=== PATIENT | male | born 1945 | race Caucasian/White ===

== ENCOUNTER 2017-07-30 10:34 | Observation (INO) | payer OTHER, MEDICARE ==
[~2017-07-30] VITALS: Ht 172.7 cm; Wt 67.0 kg
[2017-07-30] VITALS (13 sets, daily range): BP systolic 147–198; BP diastolic 75–100; PULSE 69–74; RESP 16–18; TEMP 97.8–98.2; O2SAT 93–99
[2017-07-30] MEDS ORDERED: PLAV75TA29 PO (10:59)
[2017-07-30] MEDS ORDERED: LISI10TA3 PO (10:59)
--- NOTE | 2017-07-30 10:59 | PD ---
HPI Chief Complaint: Chest Pain Time Seen by Provider: 10:52 Travel History International Travel<30 days: No (`) Contact w/Intl Traveler<30days: No Traveled to known affect area: No History of Present Illness HPI 72-year-old male with history of CAD, previous PR with pacemaker placement on Plavix, remote CVA 2 with left-sided deficit, PE, alcoholism, presents emergency department for evaluation of acute onset left-sided chest pain that began last evening. Patient reports that initially his left arm cramped and appeared discolored that he developed this chest pain. He states at times it radiates to his epigastrium and sometimes into his back. It is intermittent, moderate in severity. He has associated lightheaded sensation, nausea, and shortness of breath with it. He denies any recent illnesses, fever, or chills. He tells me that he has had a nuclear stress test within the last year and was told that it was normal. He was given aspirin and sublingual nitro spray in route to help to alleviate his pain. He currently rates his pain a 6 out of 10. He has no other symptoms to report at this time. [facility] Past Medical History Hx Anticoagulant Therapy: Yes (plavix) Cardiovascular Problems: Yes Social History Alcohol Use: Yes Tobacco Use: Yes Allergies-Medications (Allergen,Severity, Reaction): Coded Allergies: fish derived (Verified Allergy, Unknown, HIVES, 07/30/17) iodine (Verified Allergy, Unknown, HIVES, 07/30/17) Reported Meds & Prescriptions Reported Meds & Active Scripts Active Reported Prazosin (Prazosin HCl) 1 Mg Cap 1 Mg PO HS Plavix (Clopidogrel Bisulfate) 75 Mg Tab 75 Mg PO DAILY Lisinopril 10 Mg Tab 10 Mg PO DAILY Review of Systems Except as stated in HPI: all other systems reviewed are Neg Physical Exam Narrative GENERAL: Thin male patient, lying in bed, in no acute distress. SKIN: Focused skin assessment warm/dry. Psoriatic appearance with redness and crusting to the face HEAD: Atraumatic. Normocephalic. EYES: Pupils equal and round. No scleral icterus. No injection or drainage. ENT: No nasal bleeding or discharge. Mucous membranes pink and moist. NECK: Trachea midline. No JVD. CARDIOVASCULAR: Regular rate and rhythm. RESPIRATORY: No accessory muscle use. Clear to auscultation. Breath sounds equal bilaterally. GASTROINTESTINAL: Abdomen soft, nondistended. Left lower quadrant tenderness to palpation.. Hepatic and splenic margins not palpable. MUSCULOSKELETAL: No obvious deformities. No clubbing. No cyanosis. No edema. Mild left-sided weakness left upper extremity. NEUROLOGICAL: Awake and alert. No obvious cranial nerve deficits. Motor grossly within normal limits. Normal speech. PSYCHIATRIC: Appropriate mood and affect; insight and judgment normal. Data Data Last Documented VS Vital Signs Date Time Temp Pulse Resp B/P (MAP) Pulse Ox O2 Delivery O2 Flow Rate FiO2 07/30/17 16:30 97.8 69 18 158/87 (110) 98 Room Air 2.00 Orders Orders Electrocardiogram (07/30/17 10:58) Basic Metabolic Panel (Bmp) (07/30/17 10:58) Ckmb (Isoenzyme) Profile (07/30/17 10:58) Complete Blood Count With Diff (07/30/17 10:58) Magnesium (Mg) (07/30/17 10:58) Prothrombin Time / Inr (Pt) (07/30/17 10:58) Act Partial Throm Time (Ptt) (07/30/17 10:58) Troponin I (07/30/17 10:58) Lipase (07/30/17 10:58) Ecg Monitoring (07/30/17 10:58) Bilateral Bp Monitoring (07/30/17 10:58) Iv Access Insert/Monitor (07/30/17 10:58) Oximetry (07/30/17 10:58) Oxygen Administration (07/30/17 10:58) Aspirin Chew (Aspirin Chew) (07/30/17 11:00) Sodium Chloride 0.9% Flush (Ns Flush) (07/30/17 11:00) Nitroglycerin Sl (Nitrostat Sl) (07/30/17 11:00) Sodium Chlorid 0.9% 500 Ml Inj (Ns 500 M (07/30/17 11:00) Chest, Pa & Lat (07/30/17 10:58) Morphine Inj (Morphine Inj) (07/30/17 12:15) Ondansetron Odt (Zofran Odt) (07/30/17 12:15) Morphine Inj (Morphine Inj) (07/30/17 12:05) Troponin I (07/30/17 16:16) Orthostatic Blood Pressure (07/30/17 18:06) Labs Laboratory Tests Test 07/30/17 11:00 07/30/17 16:40 White Blood Count 6.4 TH/MM3 Red Blood Count 3.95 MIL/MM3 Hemoglobin 12.6 GM/DL Hematocrit 37.6 % Mean Corpuscular Volume 95.2 FL Mean Corpuscular Hemoglobin 31.8 PG Mean Corpuscular Hemoglobin Concent 33.5 % Red Cell Distribution Width 15.3 % Platelet Count 117 TH/MM3 Mean Platelet Volume 9.4 FL Neutrophils (%) (Auto) 62.8 % Lymphocytes (%) (Auto) 23.3 % Monocytes (%) (Auto) 12.1 % Eosinophils (%) (Auto) 1.4 % Basophils (%) (Auto) 0.4 % Neutrophils # (Auto) 4.0 TH/MM3 Lymphocytes # (Auto) 1.5 TH/MM3 Monocytes # (Auto) 0.8 TH/MM3 Eosinophils # (Auto) 0.1 TH/MM3 Basophils # (Auto) 0.0 TH/MM3 CBC Comment DIFF FINAL Differential Comment Prothrombin Time 10.2 SEC Prothromb Time International Ratio 1.0 RATIO Activated Partial Thromboplast Time 28.5 SEC Blood Urea Nitrogen 18 MG/DL Creatinine 0.76 MG/DL Random Glucose 103 MG/DL Calcium Level 8.6 MG/DL Magnesium Level 1.6 MG/DL Sodium Level 140 MEQ/L Potassium Level 3.9 MEQ/L Chloride Level 104 MEQ/L Carbon Dioxide Level 27.6 MEQ/L Anion Gap 8 MEQ/L Estimat Glomerular Filtration Rate 101 ML/MIN Total Creatine Kinase 86 U/L Troponin I LESS THAN 0.02 NG/ML 0.02 NG/ML Lipase 91 U/L [facility] Medical Decision Making Medical Screen Exam Complete: Yes Emergency Medical Condition: Yes Medical Record Reviewed: Yes Differential Diagnosis ACS versus PE versus electrolyte abnormality versus pneumonia versus pancreatitis Narrative Course 72-year-old male presents to the emergency department for evaluation from the [place] for chest pain. patient appears nontoxic. His lung sounds are clear. His vital signs are stable. EKG is reviewed by my attending physician. Chest pain workup is initiated. Patient is given pain control. Laboratory Tests Test 07/30/17 11:00 White Blood Count 6.4 TH/MM3 Red Blood Count 3.95 MIL/MM3 Hemoglobin 12.6 GM/DL Hematocrit 37.6 % Mean Corpuscular Volume 95.2 FL Mean Corpuscular Hemoglobin 31.8 PG Mean Corpuscular Hemoglobin Concent 33.5 % Red Cell Distribution Width 15.3 % Platelet Count 117 TH/MM3 Mean Platelet Volume 9.4 FL Neutrophils (%) (Auto) 62.8 % Lymphocytes (%) (Auto) 23.3 % Monocytes (%) (Auto) 12.1 % Eosinophils (%) (Auto) 1.4 % Basophils (%) (Auto) 0.4 % Neutrophils # (Auto) 4.0 TH/MM3 Lymphocytes # (Auto) 1.5 TH/MM3 Monocytes # (Auto) 0.8 TH/MM3 Eosinophils # (Auto) 0.1 TH/MM3 Basophils # (Auto) 0.0 TH/MM3 CBC Comment DIFF FINAL Differential Comment Prothrombin Time 10.2 SEC Prothromb Time International Ratio 1.0 RATIO Activated Partial Thromboplast Time 28.5 SEC Blood Urea Nitrogen 18 MG/DL Creatinine 0.76 MG/DL Random Glucose 103 MG/DL Calcium Level 8.6 MG/DL Magnesium Level 1.6 MG/DL Sodium Level 140 MEQ/L Potassium Level 3.9 MEQ/L Chloride Level 104 MEQ/L Carbon Dioxide Level 27.6 MEQ/L Anion Gap 8 MEQ/L Estimat Glomerular Filtration Rate 101 ML/MIN Total Creatine Kinase 86 U/L Troponin I LESS THAN 0.02 NG/ML Lipase 91 U/L Last Impressions Chest X-Ray 07/30/17 1058 Signed Impressions: Service Date/Time: Sunday, July 30, 2017 11:36 - CONCLUSION: Stable chest Jamil Kent MD FACR Findings are discussed with my attending physician. She is also reviewed them and evaluated the patient. we will contact [facility] for interrogation of the pacemaker. We will also do a delta troponin. 1630 interrogation is complete and reported no recent events. Delta troponin is pending. 1740 delta troponin is 0.02. Patient will be discharged home to follow-up with his primary care provider and survey questionnaire designer. He is advised to return immediately with acute worsening of symptoms. 1800 prior to discharge, the patient states that he feels lightheaded upon standing. Orthostatics are completed and without any significant change. Patient states that he cannot go home like this. I discussed this with my attending physician. We feel it is safest for the patient to be admitted observation for further evaluation of this near syncope. Diagnosis Primary Impression: Chest pain Qualified Codes: R07.9 - Chest pain, unspecified Additional Impression: Near syncope Admitting Information Admitting Physician Requests: Observation Referrals: Dough Sheeter Primary Care Physician Patient Instructions: Chest Pain (ED), General Instructions Additional Instructions: Follow-up with your primary care provider Continue medication as already prescribed Return immediately with any acute worsening symptoms Med/Other Pt SpecificInfo: No Change to Meds Condition: Stable Ann Lara July 30, 2017 10:59
[2017-07-30] MEDS ORDERED: SODIUM CHLORID 0.9% 500 ML INJ 500 ML IV ONE (11:00)
[2017-07-30] MEDS ORDERED: ASPIRIN 81 MG CHEW TAB PO ONE (11:00)
[2017-07-30] MEDS ORDERED: SODIUM CHLORIDE 0.9% FLUSH 10 ML FLUSH IVF PRN (11:00)
[2017-07-30] MEDS: NITROGLYCERIN 0.4 MG SL 25 TABS/BTL SL SCH ×3 (11:00→11:10)
[2017-07-30] MEDS ORDERED: PRAZ1CAP PO (11:05)
[2017-07-30 11:33] LABS: BASOPHIL % 0.4 % (0.0-2.0); EOSINOPHIL # 0.1 TH/MM3 (0-0.4); EOSINOPHIL % 1.4 % (0.0-4.0); HEMATOCRIT 37.6 % (39.0-51.0); HEMOGLOBIN 12.6 GM/DL (13.0-17.0); LYMPH % 23.3 % (9.0-44.0); LYMPHOCYTE # 1.5 TH/MM3 (1.0-4.8); MEAN CELL VOLUME 95.2 FL (80.0-100.0); MEAN CORPUSCULAR HEMOGLOBIN 31.8 PG (27.0-34.0); MEAN CORPUSCULAR HGB CONC 33.5 % (32.0-36.0); MEAN PLATELET VOLUME 9.4 FL (7.0-11.0); MONO % 12.1 % (0.0-8.0); MONOCYTE # 0.8 TH/MM3 (0-0.9); NEUT % 62.8 % (16.0-70.0); PLATELET COUNT 117 TH/MM3 (150-450); RED BLOOD COUNT 3.95 MIL/MM3 (4.50-5.90); RED CELL DISTRIBUTION WIDTH 15.3 % (11.6-17.2); WHITE BLOOD COUNT 6.4 TH/MM3 (4.0-11.0)
[2017-07-30 11:51] LABS: PROTHROMBIN TIME - PATIENT 10.2 SEC (9.8-11.6)
--- NOTE | 2017-07-30 11:51 | RADRPT ---
EXAM DATE/TIME: 07/30/2017 11:36 [facility] COMPARISON: No previous studies available for comparison. INDICATIONS : Left side chest pains from pacemaker shocks. MEDICAL HISTORY : Myocardial infarction. SURGICAL HISTORY : Pacemaker. ENCOUNTER: Initial ACUITY: 2 days PAIN SCORE: 10/10 LOCATION: Left chest FINDINGS: Pacemaker left chest. Mild, stable cardiomegaly without infiltrate or failure. The portion of the bony skeleton visualized is unremarkable. CONCLUSION: Stable chest Jamil Kent MD FACR on July 30, 2017 at 11:48 Board Certified Radiologist. This report was verified electronically.
[2017-07-30] MEDS: MORPHINE SULFATE 4 MG/ML INJ ONE ×2 (12:05→12:24)
[2017-07-30 12:09] LABS: BICARBONATE 27.6 MEQ/L (21.0-32.0); BLOOD UREA NITROGEN 18 MG/DL (7-18); CALCIUM 8.6 MG/DL (8.5-10.1); CHLORIDE 104 MEQ/L (98-107); CREATININE 0.76 MG/DL (0.60-1.30); GLOMERULAR FILTRATION RATE 101 ML/MIN (>89); GLUCOSE,RANDOM 103 MG/DL (74-106); MAGNESIUM 1.6 MG/DL (1.5-2.5); SODIUM (NA) 140 MEQ/L (136-145)
[2017-07-30 12:15] LABS: TROPONIN I LESS THAN 0.02 NG/ML (0.02-0.05)
[2017-07-30] MEDS ORDERED: MORPHINE SULFATE 2 MG/ML SYRINGE IV PUSH ONE (12:15)
[2017-07-30] MEDS ORDERED: ONDANSETRON ODT 4 MG TAB PO ONE (12:15)
[2017-07-30 17:38] LABS: TROPONIN I 0.02 NG/ML (0.02-0.05)
[2017-07-30] MEDS ORDERED: ONDANSETRON ODT 4 MG TAB PO PRN (18:45)
[2017-07-30] MEDS ORDERED: hydrALAZINE HCL 25 MG TAB PO ONE (18:45)
[2017-07-30] MEDS ORDERED: MAGNESIUM HYDROXIDE SUSP 30 ML CUP PO PRN (18:45)
[2017-07-30] MEDS ORDERED: ACETAMINOPHEN 325 MG TAB PO PRN (18:45)
[2017-07-30] MEDS ORDERED: LACTULOSE SYRUP 20 GM/30 ML CUP PO PRN (18:45)
[2017-07-30] MEDS ORDERED: SENNOSIDES 8.6 MG TAB PO PRN (18:45)
[2017-07-30] MEDS ORDERED: NALOXONE HCL 0.4 MG/ML AMP IV PUSH PRN (18:45)
[2017-07-30] MEDS ORDERED: BISACODYL 10 MG SUPP RECTAL PRN (18:45)
[2017-07-30] MEDS ORDERED: hydrALAZINE HCL 25 MG TAB PO PRN (18:45)
--- NOTE | 2017-07-30 19:03 | PD ---
Data Data Last Documented VS Vital Signs Date Time Temp Pulse Resp B/P (MAP) Pulse Ox O2 Delivery O2 Flow Rate FiO2 07/30/17 18:08 72 18 188/96 (126) 73 17 198/96 (130) 72 16 196/100 (132) 07/30/17 16:30 97.8 98 Room Air 2.00 Orders Orders Electrocardiogram (07/30/17 10:58) Basic Metabolic Panel (Bmp) (07/30/17 10:58) Ckmb (Isoenzyme) Profile (07/30/17 10:58) Complete Blood Count With Diff (07/30/17 10:58) Magnesium (Mg) (07/30/17 10:58) Prothrombin Time / Inr (Pt) (07/30/17 10:58) Act Partial Throm Time (Ptt) (07/30/17 10:58) Troponin I (07/30/17 10:58) Lipase (07/30/17 10:58) Ecg Monitoring (07/30/17 10:58) Bilateral Bp Monitoring (07/30/17 10:58) Iv Access Insert/Monitor (07/30/17 10:58) Oximetry (07/30/17 10:58) Oxygen Administration (07/30/17 10:58) Aspirin Chew (Aspirin Chew) (07/30/17 11:00) Sodium Chloride 0.9% Flush (Ns Flush) (07/30/17 11:00) Nitroglycerin Sl (Nitrostat Sl) (07/30/17 11:00) Sodium Chlorid 0.9% 500 Ml Inj (Ns 500 M (07/30/17 11:00) Chest, Pa & Lat (07/30/17 10:58) Morphine Inj (Morphine Inj) (07/30/17 12:15) Ondansetron Odt (Zofran Odt) (07/30/17 12:15) Morphine Inj (Morphine Inj) (07/30/17 12:05) Troponin I (07/30/17 16:16) Orthostatic Blood Pressure (07/30/17 18:06) Admit Order (Ed Use Only) (07/30/17 18:27) Labs Laboratory Tests Test 07/30/17 11:00 07/30/17 16:40 White Blood Count 6.4 TH/MM3 Red Blood Count 3.95 MIL/MM3 Hemoglobin 12.6 GM/DL Hematocrit 37.6 % Mean Corpuscular Volume 95.2 FL Mean Corpuscular Hemoglobin 31.8 PG Mean Corpuscular Hemoglobin Concent 33.5 % Red Cell Distribution Width 15.3 % Platelet Count 117 TH/MM3 Mean Platelet Volume 9.4 FL Neutrophils (%) (Auto) 62.8 % Lymphocytes (%) (Auto) 23.3 % Monocytes (%) (Auto) 12.1 % Eosinophils (%) (Auto) 1.4 % Basophils (%) (Auto) 0.4 % Neutrophils # (Auto) 4.0 TH/MM3 Lymphocytes # (Auto) 1.5 TH/MM3 Monocytes # (Auto) 0.8 TH/MM3 Eosinophils # (Auto) 0.1 TH/MM3 Basophils # (Auto) 0.0 TH/MM3 CBC Comment DIFF FINAL Differential Comment Prothrombin Time 10.2 SEC Prothromb Time International Ratio 1.0 RATIO Activated Partial Thromboplast Time 28.5 SEC Blood Urea Nitrogen 18 MG/DL Creatinine 0.76 MG/DL Random Glucose 103 MG/DL Calcium Level 8.6 MG/DL Magnesium Level 1.6 MG/DL Sodium Level 140 MEQ/L Potassium Level 3.9 MEQ/L Chloride Level 104 MEQ/L Carbon Dioxide Level 27.6 MEQ/L Anion Gap 8 MEQ/L Estimat Glomerular Filtration Rate 101 ML/MIN Total Creatine Kinase 86 U/L Troponin I LESS THAN 0.02 NG/ML 0.02 NG/ML Lipase 91 U/L MDM Supervised Visit with JASPREET: Yes Narrative Course The history, exam, and medical decision-making in the associated midlevel provider note were completed with my assistance. I reviewed and agree with the findings presented. I attest that I had a [id number] encounter with the patient on the same day, and personally performed and documented my assessment and findings in the medical record. *My assessment and Findings: This is a 72-year-old male who presents to the emergency department with palpitations feeling like he is getting zaps in the left side of his chest and some chest discomfort. He is concerned that his AICD is not working. He recently moved here from another area and does not have any doctors established here. His AICD was interrogated and he had no recent events. 2 troponins were obtained which were reassuring. Upon discharge the patient became lightheaded and had an episode of near syncope. He will be observed for syncope and for serial cardiac enzymes. Diagnosis Primary Impression: Chest pain Qualified Codes: R07.9 - Chest pain, unspecified Additional Impression: Near syncope Referrals: [facility] Primary Care Physician Patient Instructions: General Instructions, Chest Pain (ED) Departure Forms: Tests/Procedures Additional Instruction: Follow-up with your primary care provider Continue medication as already prescribed Return immediately with any acute worsening symptoms Condition: Jo Vargas MD July 30, 2017 19:03
[2017-07-30] MEDS ORDERED: MORPHINE SULFATE 2 MG/ML SYRINGE IV PUSH PRN (19:30)
[2017-07-30] MEDS ORDERED: ENALAPRILAT 1.25 MG/ML VIAL IV PUSH PRN (19:30)
--- NOTE | 2017-07-30 19:41 | HHI.HP ---
[facility] Service [facility] Primary Care Physician Unknown Admission Diagnosis Near syncope; chest pain Diagnoses: (1) Near syncope Diagnosis: Principal (2) Chest pain Diagnosis: Principal Chief Complaint: chest pain Travel History International Travel<30 Days: No (`) Contact w/Intl Traveler <30 Da: No Traveled to Known Affected Are: No History of Present Illness patient is a 72 y/o male with history of CAD, CVA,atrial fibrillation? and hypertension who presented to ER with chest pain. he says that the pain started last night. pain was localized to left lower chest associated with some nausea and dizziness and some tingling of the left hand. he denies any fever or cough or sob.he was about to be discharged when he had a near-syncope episode. he says that he had a stress test probably about a year ago which was reportedly negative. Review of Systems Constitutional: COMPLAINS OF: Dizziness, DENIES: Fever, Weight loss, Chills, Night Sweats Eyes: DENIES: Blurred vision, Diplopia, Vision loss, Double Vision Ears, nose, mouth, throat: DENIES: Tinnitus, Vertigo, Throat pain, Epistaxis Respiratory: DENIES: Apneas, Cough, Snoring, Wheezing, Hemoptysis, Sputum production, Shortness of breath Cardiovascular: COMPLAINS OF: Chest pain, DENIES: Palpitations, Syncope, Dyspnea on Exertion, PND, Lower Extremity Edema, Orthopnea, Claudication Gastrointestinal: COMPLAINS OF: Nausea, DENIES: Abdominal pain, Black stools, Bloody stools, Constipation, Diarrhea, Vomiting, Difficulty Swallowing, Anorexia Genitourinary: DENIES: Urinary frequency, Urgency, Hematuria, Dysuria Musculoskeletal: DENIES: Joint pain, Muscle aches, Stiffness, Joint Swelling Integumentary: DENIES: Rash Neurologic: DENIES: Abnormal gait, Headache, Localized weakness, Paresthesias, Seizures, Speech Problems, Tremor, Poor Balance Psychiatric: DENIES: Anxiety, Confusion, Mood changes, Depression, Hallucinations, Agitation, Suicidal Ideation, Homicidal Ideation, Delusions Past Family Social History Past Medical History CAD/ CVA/hypertension/ atrial fibrillation? Past Surgical History carotid endarterectomy/ pacemaker placement. Reported Medications aspirin/ plavix/lisinopril/prazosin Allergies: Coded Allergies: fish derived (Verified Allergy, Unknown, HIVES, 07/30/17) iodine (Verified Allergy, Unknown, HIVES, 07/30/17) Active Ordered Medications Inpatient Medications Acetaminophen (Tylenol) 650 mg Q4H PRN PO TEMP > 100.4; Start 07/30/17 at 18:45 Aspirin (Aspirin Chew) 324 mg ONCE ONCE PO ; Start 07/30/17 at 11:00; Stop at 11:01; Status DC Bisacodyl (Dulcolax Supp) 10 mg DAILY PRN RECTAL SEVERE CONSITIPATION; Start at 18:45 Clopidogrel Bisulfate (Plavix) 75 mg DAILY PO ; Start 07/31/17 at 09:00 Hydralazine HCl (Apresoline) 25 mg Q8HR PRN PO SBP>160, DBP>90; Start 07/30/17 at 18:45 Lactulose (Lactulose Liq) 30 ml DAILY PRN PO SEVERE CONSITIPATION; Start at 18:45 Lisinopril (Prinivil) 10 mg DAILY PO ; Start 07/31/17 at 09:00 Magnesium Hydroxide (Milk Of Magnesia Liq) 30 ml Q12H PRN PO Mild constipation ; Start 07/30/17 at 18:45 Morphine Sulfate (Morphine Inj) 2 mg ONCE ONCE IV PUSH Last administered on at 12:26; Start 07/30/17 at 12:15; Stop 07/30/17 at 12:16; Status DC Naloxone HCl (Narcan Inj) 0.4 mg UNSCH PRN IV PUSH SEE LABEL COMMENTS; Start at 18:45 Nitroglycerin (Nitrostat Sl) 0.4 mg Q5M PRN SL CHEST PAIN; Start 07/30/17 at 18 :45 Ondansetron HCl (Zofran Odt) 4 mg Q6H PRN PO NAUSEA OR VOMITING; Start at 18:45 Prazosin HCl (Minipress) 1 mg HS PO ; Start 07/30/17 at 21:00 Senna/Docusate Sodium (Tisha-Colace) 1 tab BID PO ; Start 07/30/17 at 21:00 Sennosides (Senokot) 17.2 mg Q12H PRN PO Moderate constipation; Start 07/30/17 at 18:45 Sodium Chloride 500 ml @ 500 mls/hr ONCE ONCE IV Last administered on at 11:15; Start 07/30/17 at 11:00; Stop 07/30/17 at 11:59; Status DC Sodium Chloride (NS Flush) 2 ml UNSCH PRN IVF FLUSH AFTER USING IV ACCESS Last administered on 07/30/17at 11:15; Start 07/30/17 at 11:00 Social History smokes half a pack/ drinks occasionally. Physical Exam Vital Signs Vital Signs Date Time Temp Pulse Resp B/P (MAP) Pulse Ox O2 Delivery O2 Flow Rate FiO2 07/30/17 18:08 72 18 188/96 (126) 73 17 198/96 (130) 72 16 196/100 (132) 07/30/17 16:30 97.8 69 18 158/87 (110) 98 Room Air 2.00 07/30/17 15:00 98.0 69 16 163/86 (111) 98 Nasal Cannula 2.00 07/30/17 13:15 97.8 69 17 171/86 (114) 98 Room Air 2.00 07/30/17 12:31 18 07/30/17 11:05 69 18 181/95 (123) 99 Room Air 179/97 (124) 07/30/17 11:04 99 Room Air 07/30/17 11:04 18 99 Room Air 07/30/17 10:40 97.8 74 18 195/95 (128) 98 07/30/17 10:40 69 17 99 Nasal Cannula 2.00 Physical Exam GENERAL: This is a well-nourished, well-developed patient, in no apparent distress. SKIN: No rashes, ecchymoses or lesions. Cool and dry. HEAD: Atraumatic. Normocephalic. No temporal or scalp tenderness. EYES: Pupils equal round and reactive. Extraocular motions intact. No scleral icterus. No injection or drainage. ENT: Nose without bleeding, purulent drainage or septal hematoma. Throat without erythema, tonsillar hypertrophy or exudate. Uvula midline. Airway patent. NECK: Trachea midline. No JVD or lymphadenopathy. Supple, nontender, no meningeal signs. CARDIOVASCULAR: Regular rate and rhythm without murmurs, gallops, or rubs. RESPIRATORY: Clear to auscultation. Breath sounds equal bilaterally. No wheezes , rales, or rhonchi. GASTROINTESTINAL: Abdomen soft, non-tender, nondistended. No hepato-splenomegaly , or palpable masses. No guarding. MUSCULOSKELETAL: Extremities without clubbing, cyanosis, or edema. No joint tenderness, effusion, or edema noted. No calf tenderness. Negative Homans sign bilaterally. NEUROLOGICAL: Awake and alert. Cranial nerves II through XII intact. Motor and sensory grossly within normal limits. Five out of 5 muscle strength in all muscle groups. Normal speech. Laboratory Laboratory Tests Test 07/30/17 11:00 07/30/17 16:40 White Blood Count 6.4 Red Blood Count 3.95 Hemoglobin 12.6 Hematocrit 37.6 Mean Corpuscular Volume 95.2 Mean Corpuscular Hemoglobin 31.8 Mean Corpuscular Hemoglobin Concent 33.5 Red Cell Distribution Width 15.3 Platelet Count 117 Mean Platelet Volume 9.4 Neutrophils (%) (Auto) 62.8 Lymphocytes (%) (Auto) 23.3 Monocytes (%) (Auto) 12.1 Eosinophils (%) (Auto) 1.4 Basophils (%) (Auto) 0.4 Neutrophils # (Auto) 4.0 Lymphocytes # (Auto) 1.5 Monocytes # (Auto) 0.8 Eosinophils # (Auto) 0.1 Basophils # (Auto) 0.0 CBC Comment DIFF FINAL Differential Comment Prothrombin Time 10.2 Prothromb Time International Ratio 1.0 Activated Partial Thromboplast Time 28.5 Blood Urea Nitrogen 18 Creatinine 0.76 Random Glucose 103 Calcium Level 8.6 Magnesium Level 1.6 Sodium Level 140 Potassium Level 3.9 Chloride Level 104 Carbon Dioxide Level 27.6 Anion Gap 8 Estimat Glomerular Filtration Rate 101 Total Creatine Kinase 86 Troponin I LESS THAN 0.02 0.02 Lipase 91 Result Diagram: 07/30/17 1100 07/30/17 1100 Imaging Last Impressions Chest X-Ray 07/30/17 1058 Signed Impressions: Service Date/Time: Sunday, July 30, 2017 11:36 - CONCLUSION: Stable chest Jamil Kent MD FACR EKG; pacer rhythm Caprini VTE Risk Assessment Caprini VTE Risk Assessment: Mod/High Risk (score >= 2) Caprini Risk Assessment Model Point Value = 1 Point Value = 2 Point Value = 3 Point Value = 5 Age 41-60 Minor surgery BMI > 25 kg/m2 Swollen legs Varicose veins or History of unexplained or recurrent spontaneous Oral contraceptives or hormone replacement Sepsis (< 1 month) Serious lung disease, including pneumonia (< 1 month) Abnormal pulmonary function Acute myocardial infarction Congestive heart failure (< 1 month) History of inflammatory bowel disease Medical patient at bed rest Age 61-74 Arthroscopic surgery Major open surgery (> 45 min) Laparoscopic surgery (> 45 min) Malignancy Confined to bed (> 72 hours) Immobilizing plaster cast Central venous access Age >= 75 History of VTE Family history of VTE Factor V Leiden Prothrombin [id number] Lupus anticoagulant Anticardiolipin antibodies Elevated serum homocysteine Heparin-induced thrombocytopenia Other congenital or acquired thrombophilia Stroke (< 1 month) Elective arthroplasty Hip, pelvis, or leg fracture Acute spinal cord injury (< 1 month) Prophylaxis Regimen Total Risk Factor Score Risk Level Prophylaxis Regimen 0-1 Low Early ambulation 2 Moderate Order ONE of the following: *Sequential Compression Device (SCD) *Heparin 5000 units SQ BID 3-4 Higher Order ONE of the following medications: *Heparin 5000 units SQ TID *Enoxaparin/Lovenox 40 mg SQ daily (WT < 150 kg, CrCl > 30 mL/min) *Enoxaparin/Lovenox 30 mg SQ daily (WT < 150 kg, CrCl > 10-29 mL/min) *Enoxaparin/Lovenox 30 mg SQ BID (WT < 150 kg, CrCl > 30 mL/min) AND/OR *Sequential Compression Device (SCD) 5 or more Highest Order ONE of the following medications: *Heparin 5000 units SQ TID (Preferred with Epidurals) *Enoxaparin/Lovenox 40 mg SQ daily (WT < 150 kg, CrCl > 30 mL/min) *Enoxaparin/Lovenox 30 mg SQ daily (WT < 150 kg, CrCl > 10-29 mL/min) *Enoxaparin/Lovenox 30 mg SQ BID (WT < 150 kg, CrCl > 30 mL/min) AND *Sequential Compression Device (SCD) Assessment and Plan Assessment and Plan A/P - chest pain with history of CAD/ near-syncope continue aspirin, plavix- resume lisinopril and will add BB- will continue to trend the cardiac enzymes reportedly had a negative stress test less than a year ago- will obtain the record. check echo/ carotid doppler. counselled on smoking cessation. -atrial fibrillation- s/p pacemaker placement- continue aspirin/ plavix -hypertension; not well controlled- resume lisinopril- add Lopressor- vasotec prn- will monitor and adjust the regimen as needed. -history of CVA- continue aspirin/ plavix -DVT prophylaxis with SCD's Discussed Condition With the patient and RN. Problem Qualifiers (1) Chest pain: Qualified Codes: R07.9 - Chest pain, unspecified Harris Ferrera MD July 30, 2017 19:41
[2017-07-30] MEDS: NITROGLYCERIN 0.4 MG SL 25 TABS/BTL SL PRN ×3 (20:04→20:20)
[2017-07-30] MEDS: LISINOPRIL 10 MG TAB PO SCH (20:07)
[2017-07-30] MEDS: DOCUSATE SODIUM 50 MG/SENNA 8.6 MG TAB PO SCH (21:00)
[2017-07-30 21:25] LABS: MAGNESIUM 1.6 MG/DL (1.5-2.5); PHOSPHORUS 3.3 MG/DL (2.5-4.9)
--- NOTE | 2017-07-30 21:55 | RADRPT ---
EXAM DATE/TIME: 07/30/2017 21:01 [facility] COMPARISON: No previous studies available for comparison. INDICATIONS : Syncope. MEDICAL HISTORY : Hypertension. Chronic obstructive pulmonary disease. Smoker. Glasses. Anticoagulant therapy, plavi x. Chest pain. Nausea. GOUT. PTSD. SURGICAL HISTORY : Tonsillectomy. Pacemaker. Appendectomy. Left endarterectomy. ENCOUNTER: Initial ACUITY: 1 day PAIN SCORE: 0/10 LOCATION: Bilateral neck PEAK SYSTOLIC VELOCITIES (cm/sec): ICA/CCA RATIO: Right: 1.5 Left: 2.1 ICA: Right: 92 Left: 139 CCA: Right: 63 Left: 66 ECA: Right: 71 Left: 63 VERTEBRAL: Right: 54 antegrade Left: 80 antegrade Elevated flow velocities and ICA/CCA ratios have been found to correlate with increased degrees of vessel stenosis, calculated as percentage of diameter relative to a normal segment of distal ICA/CCA FINDINGS: RIGHT CAROTID: There is mild plaque at the right carotid bulb region. No significant stenosis is visualized. The wa veforms are within normal limits. LEFT CAROTID: There is moderate soft plaque at the left carotid bulb region narrowing the lumen by approximately 50 % on the grayscale images. There is mild elevated peak systolic velocity at this region. The ICA/CCA ratio is mildly elevated on the left. The waveforms are within normal limits. VERTEBRAL ARTERIES: Antegrade flow is seen in both vertebral arteries. MISCELLANEOUS: None. CONCLUSION: 1. Moderate plaque at the left carotid bulb region with the lumen being narrowed by approximately 50% . 2. Mild plaque without significant stenosis of the right carotid bulb region. Juan Francisco Boyer MD on July 30, 2017 at 21:49 Board Certified Radiologist. This report was verified electronically.
[2017-07-30] MEDS: PRAZOSIN HCL 1 MG CAP PO SCH (23:05)
[2017-07-30] MEDS: ACETAMINOPHEN/HYDROcodone 325 MG/5 MG TAB PO PRN (23:05)
[2017-07-31] VITALS (11 sets, daily range): BP systolic 110–145; BP diastolic 65–78; PULSE 69–77; RESP 17–18; TEMP 97.8–98.4; O2SAT 92–94
[2017-07-31] MEDS: ACETAMINOPHEN/HYDROcodone 325 MG/5 MG TAB PO PRN ×3 (06:35→20:11)
[2017-07-31] MEDS: DOCUSATE SODIUM 50 MG/SENNA 8.6 MG TAB PO SCH ×2 (09:00→20:08)
[2017-07-31] MEDS ORDERED: LISINOPRIL 10 MG TAB PO SCH (09:00)
[2017-07-31] MEDS ORDERED: MECLIZINE HCL 25 MG TAB PO ONE (10:00)
--- NOTE | 2017-07-31 10:00 | HHI.PR ---
Subjective Remarks Chest pain is resolved. Troponins have stayed within normal limits. Patient reports a past history of aneurysm, he does not know where but says it is in his brain. This may be contributory to his dizziness. Dizziness has been persistent for about 3-4 weeks. Objective Vital Signs Date Time Temp Pulse Resp B/P (MAP) Pulse Ox O2 Delivery O2 Flow Rate FiO2 07/31/17 08:44 97.8 70 18 133/74 (93) 94 140/74 (96) 145/75 (98) 07/31/17 04:26 Nasal Cannula 3.00 07/31/17 03:22 98.4 70 17 110/65 (80) 93 07/30/17 23:29 98.0 70 17 164/77 (106) 93 07/30/17 21:06 98.2 70 16 153/78 (103) 97 07/30/17 20:20 69 18 147/75 (99) 93 Nasal Cannula 3.00 07/30/17 20:14 69 18 160/86 (110) 94 Nasal Cannula 2.00 07/30/17 19:43 184/88 (120) 07/30/17 19:38 70 16 188/100 (129) 97 Room Air 07/30/17 18:08 72 18 188/96 (126) 73 17 198/96 (130) 72 16 196/100 (132) 07/30/17 16:30 97.8 69 18 158/87 (110) 98 Room Air 2.00 07/30/17 15:00 98.0 69 16 163/86 (111) 98 Nasal Cannula 2.00 07/30/17 13:15 97.8 69 17 171/86 (114) 98 Room Air 2.00 07/30/17 12:31 18 07/30/17 11:05 69 18 181/95 (123) 99 Room Air 179/97 (124) 07/30/17 11:04 99 Room Air 07/30/17 11:04 18 99 Room Air 07/30/17 10:40 97.8 74 18 195/95 (128) 98 07/30/17 10:40 69 17 99 Nasal Cannula 2.00 I/O 07/30/17 07/30/17 07/30/17 07/31/17 07/31/17 07/31/17 07:00 15:00 23:00 07:00 15:00 23:00 Intake Total 800 ml Output Total 900 ml 125 ml Balance -100 ml -125 ml Intake Oral 300 ml IV Total 500 ml Output Urine Total 900 ml 125 ml # Voids 2 1 # Bowel Movements 0 Result Diagram: 07/30/17 1100 07/30/17 1100 Objective Remarks GENERAL: NAD, A&Ox3 HEAD: Normocephalic. NECK: Supple, trachea midline. No lymphadenopathy. EYES: No scleral icterus. No injection or drainage. CARDIOVASCULAR: Regular rate and rhythm without murmurs, gallops, or rubs. RESPIRATORY: Breath sounds equal bilaterally. No accessory muscle use. GASTROINTESTINAL: Abdomen soft, non-tender, nondistended. MUSCULOSKELETAL: No cyanosis, or edema. SKIN: Warm and dry. NEURO: No focal neurological deficitis. A/P Problem List: (1) Near syncope ICD Code: R55 - Syncope and collapse Status: Acute (2) Chest pain ICD Code: R07.9 - Chest pain, unspecified Status: Acute Assessment and Plan 72-year-old male admitted secondary to dizziness and chest pain Chest pain Negative cardiac workup Continue aspirin, Plavix, lisinopril Negative stress test within the year Dizziness History of brain aneurysm NOS Previous history of CVA Echocardiogram pending Carotid ultrasound pending Obtain MRI and MRA to evaluate for posterior infarctions and aneurysm Start meclizine Continue physical therapy Alternative etiology could be chronic labyrinthitis Consider steroids if workup is negative for infarctions or aneurysm Atrial fibrillation Continue aspirin and Plavix Hypertension Continue baseline treatment Follow blood pressures Adjust treatments as needed Continue lisinopril Continue Lopressor Nicotine dependence Smoking cessation recommended DVT prophylaxis SCD's Problem Qualifiers (1) Chest pain: Qualified Codes: R07.9 - Chest pain, unspecified Chris Whiting MD July 31, 2017 10:00
[2017-07-31] MEDS: CLOPIDOGREL 75 MG TAB PO SCH (10:49)
[2017-07-31] MEDS: ASPIRIN EC 81 MG TABEC PO SCH (10:50)
[2017-07-31] MEDS: METOPROLOL TARTRATE 25 MG TAB PO SCH (10:50)
[2017-07-31] MEDS: LISINOPRIL 10 MG TAB PO SCH (10:51)
[2017-07-31 17:41] LABS: BICARBONATE 33.3 MEQ/L (21.0-32.0); CALCIUM 8.2 MG/DL (8.5-10.1); CREATININE 0.88 MG/DL (0.60-1.30)
[2017-07-31] MEDS: MECLIZINE HCL 25 MG TAB PO SCH (18:43)
[2017-07-31] MEDS: predniSONE 50 MG TAB PO SCH (20:08)
[2017-07-31] MEDS: PRAZOSIN HCL 1 MG CAP PO SCH (20:08)
[2017-08-01] VITALS (9 sets, daily range): BP systolic 117–167; BP diastolic 67–84; PULSE 69–70; RESP 16–18; TEMP 97.3–98.5; O2SAT 92–96
[2017-08-01] MEDS: MECLIZINE HCL 25 MG TAB PO SCH ×3 (02:05→18:30)
[2017-08-01] MEDS: predniSONE 50 MG TAB PO SCH ×2 (03:49→10:49)
[2017-08-01] MEDS: ACETAMINOPHEN/HYDROcodone 325 MG/5 MG TAB PO PRN ×2 (03:51→10:54)
[2017-08-01] MEDS: CLOPIDOGREL 75 MG TAB PO SCH (08:50)
[2017-08-01] MEDS: METOPROLOL TARTRATE 25 MG TAB PO SCH (08:51)
[2017-08-01] MEDS: DOCUSATE SODIUM 50 MG/SENNA 8.6 MG TAB PO SCH ×2 (08:51→20:12)
[2017-08-01] MEDS: ASPIRIN EC 81 MG TABEC PO SCH (08:52)
[2017-08-01] MEDS: LISINOPRIL 10 MG TAB PO SCH (08:52)
[2017-08-01] MEDS ORDERED: diphenhydrAMINE HCL 50 MG CAP PO ONE (10:00)
[2017-08-01] MEDS ORDERED: IOHEXOL 350 MG/ML 10 ML VIAL (for RAD DIAG) IVCONTRAST ONE (11:26)
--- NOTE | 2017-08-01 11:53 | RADRPT ---
EXAM DATE/TIME: 08/01/2017 11:26 [facility] COMPARISON: No previous studies available for comparison. INDICATIONS : History of cerebral vascular accident IV CONTRAST: 70 cc Omnipaque 350 (iohexol) IV RADIATION DOSE: 33.79 CTDIvol (mGy) MEDICAL HISTORY : Hypertension. Chronic obstructive pulmonary disease. SURGICAL HISTORY : Appendectomy. Pacemaker. ENCOUNTER: Initial ACUITY: 2 days PAIN SCALE: 0/10 LOCATION: cranial Patient was premedicated for underlying contrast media allergy. TECHNIQUE: Multiple contiguous axial images were obtained of the head. Using automated exposure control and adj ustment of the mA and/or kV according to patient size, radiation dose was kept as low as reasonably a chievable to obtain optimal diagnostic quality images. DICOM format image data is available electro nically for review and comparison. FINDINGS: CEREBRUM: The ventricles are normal for age. No evidence of midline shift, cerebral edema or blood products. No extra-axial fluid collections are seen. POSTERIOR FOSSA: The cerebellum and brainstem are intact. The 4th ventricle is midline. The cerebellar pontine angle is unremarkable. EXTRACRANIAL: The visualized portion of the orbits is intact. SKULL: The calvaria is intact. No evidence of skull fracture. POST CONTRAST: No abnormal areas of parenchymal or dural enhancement. No evidence of blood-brain barrier breakdown. CONCLUSION: Normal examination for a patient of this age. Bharath Anderson MD on August 01, 2017 at 11:50 Board Certified Radiologist. This report was verified electronically.
--- NOTE | 2017-08-01 12:13 | EKG ---
Date Performed: 07/30/2017 Time Performed: 10:47:12 PTAGE: 72 years EKG: ELECTRONIC ATRIAL PACEMAKER MODERATE VOLTAGE CRITERIA FOR LVH, CONSIDER NORMAL VARIANT MINI MAL ST DEPRESSION ABNORMAL RHYTHM ECG INTERPRETATION BASED ON A DEFAULT AGE OF 40 YEARS NO PREVIOUS TRACING DOCTOR: Joseph Mcfarlane Interpretating Date/Time 08/01/2017 12:04:13
--- NOTE | 2017-08-01 12:17 | RADRPT ---
EXAM DATE/TIME: 08/01/2017 11:26 [facility] COMPARISON: No previous studies available for comparison. INDICATIONS : History of aneruysm. IV CONTRAST: 70 cc Omnipaque 350 (iohexol) IV ; Cumulative dose for multiple exams. RADIATION DOSE: 25.42 CTDIvol (mGy) ; Combined studies MEDICAL HISTORY : Hypertension. Chronic obstructive pulmonary disease. SURGICAL HISTORY : Hysterectomy. Appendectomy. ENCOUNTER: Initial ACUITY: 2 days PAIN SCALE: 0/10 LOCATION: cranial Patient was premedicated for underlying contrast media allergy. TECHNIQUE: Volumetric scanning was performed using a multi-row detector CT scanner. The data was post processed with a variety of visualization algorithms including full volume maximum intensity projection, multi -planar sliding thin slab reformation, curved planar reformation, and surface rendering techniques. Using automated exposure control and adjustment of the mA and/or kV according to patient size, radiat ion dose was kept as low as reasonably achievable to obtain optimal diagnostic quality images. DICO M format image data is available electronically for review and comparison. FINDINGS: The distal internal carotid arteries are patent. The examination does demonstrate a short segment dis section involving the distal left internal carotid. There is mild aneurysmal dilation associated with this. The examination also demonstrates a densely calcified plaque in the cavernous carotid on the l eft which results in at least mild narrowing of the cavernous carotid In addition, there is a small a yahir of minimal fusiform aneurysmal dilation of the distal right internal carotid as well. CT angiogra m of the carotids is pending. The anterior and middle cerebral circulation is widely patent. No intracranial aneurysm is identified . Both vertebral arteries are patent. The basilar is widely patent. The posterior cerebral circulation is within normal limits bilaterally. CONCLUSION: 1. No intracranial aneurysm is identified. If previous imaging can be made available this would be he lpful to increase the sensitivity in evaluation. 2. Abnormal appearance of the distal left internal carotid below the skull base with a short segment area of dissection and aneurysmal dilation immediately beneath this. Maximum dimension of the aneurys mal segment of carotid is approximately 7 mm. 3. Wide necked area of aneurysmal dilation involving the distal right internal carotid below the skul l base with a maximum dimension of 8.8 mm. Chris Kent MD on August 01, 2017 at 12:07 Board Certified Radiologist. This report was verified electronically.
--- NOTE | 2017-08-01 13:16 | RADRPT ---
EXAM DATE/TIME: 08/01/2017 11:26 [facility] COMPARISON: No previous studies available for comparison. INDICATIONS : Possible anerysm IV CONTRAST: 70 cc Omnipaque 350 (iohexol) IV ; Cumulative dose for multiple exams. RADIATION DOSE: 25.43 CTDIvol (mGy) ; Combined studies MEDICAL HISTORY : Chronic obstructive pulmonary disease. Hypertension. SURGICAL HISTORY : Appendectomy. Pacemaker. ENCOUNTER: Initial ACUITY: 2 days PAIN SCALE: 0/10 LOCATION: neck Elevated flow velocities and ICA/CCA ratios have been found to correlate with increased degrees of vessel stenosis, calculated as percentage of diameter relative to a normal segment of distal ICA/CCA. Patient was premedicated for underlying contrast media allergy. TECHNIQUE: Volumetric scanning was performed using a multirow detector CT scanner. The data was post processed with a variety of visualization algorithms including full-volume maximum intensity projection, multip lanar sliding thin-slab reformation, curved-planar reformation, and surface-rendering techniques. Us ing automated exposure control and adjustment of the mA and/or kV according to patient size, radiatio n dose was kept as low as reasonably achievable to obtain optimal diagnostic quality images. DICOM f ormat image data is available electronically for review and comparison. FINDINGS: AORTIC ARCH: There is a three-vessel origin of the great vessels from the aorta. No evidence of ostial narrowing. RIGHT CAROTID: The common carotid artery is intact. The carotid bulb has a normal configuration without ulceration o r narrowing. Fusiform aneurysm of the proximal internal carotid artery measuring up to 11 mm. Mild ec centric calcified plaque in the proximal internal carotid artery with resultant less than 10% stenosi s. Focal saccular aneurysm of the distal cervical segment measuring approximately 9 mm in maximal dim ension. Flow otherwise extends to the skull base. The external carotid artery is intact. LEFT CAROTID: The common carotid artery is intact. Eccentric plaque in the proximal bulb without flow limiting michael nosis. Surgical clips likely reflect prior carotid endarterectomy. Fusiform aneurysm of the proximal internal carotid artery measuring up to 1.3 cm containing moderate eccentric mural thrombus. Eccentri c saccular aneurysm in the distal cervical segment measuring 3 mm extending 1 cm cephalad parallel to the carotid artery. Flow extends to the skull base. The external carotid artery is intact. VERTEBRALS: The vertebral arteries have a symmetric diameter. No stenotic lesions are seen. CONCLUSION: 1. No significant carotid flow limiting stenosis. 2. Postsurgical features consistent with prior left carotid endarterectomy. 3. Fusiform aneurysms of the proximal internal carotid arteries bilaterally. This measures up to 11 m m on the right and 13 mm on the left. There is moderate eccentric mural thrombus in the left internal carotid aneurysm. 4. 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 This measures 9 m m on the right and 3 x 10 mm on the left, as above. 5. Patent bilateral vertebral arteries. Toribio Lopez MD on August 01, 2017 at 13:02 Board Certified Radiologist. This report was verified electronically.
--- NOTE | 2017-08-01 15:32 | HHI.PR ---
Subjective Remarks Imaging today shows bilateral internal carotid artery aneurysms, there is also suspicion for dissection of the internal carotid artery on the left side. Patient has a history of left-sided carotid artery surgery. He still complains of dizziness. Objective Vital Signs Date Time Temp Pulse Resp B/P (MAP) Pulse Ox O2 Delivery O2 Flow Rate FiO2 08/01/17 08:06 94 21 08/01/17 07:32 97.8 70 18 167/84 (111) 96 08/01/17 04:51 16 08/01/17 03:07 98.4 70 17 117/68 (84) 95 07/31/17 23:14 98.4 77 17 120/70 (87) 92 07/31/17 23:00 70 07/31/17 21:59 94 3.00 07/31/17 19:47 98.4 70 17 145/73 (97) 93 07/31/17 16:51 97.8 70 18 138/73 (94) 94 Result Diagram: 07/30/17 1100 07/31/17 1612 Objective Remarks GENERAL: NAD, A&Ox3 HEAD: Normocephalic. NECK: Supple, trachea midline. No lymphadenopathy. EYES: No scleral icterus. No injection or drainage. CARDIOVASCULAR: Regular rate and rhythm without murmurs, gallops, or rubs. RESPIRATORY: Breath sounds equal bilaterally. No accessory muscle use. GASTROINTESTINAL: Abdomen soft, non-tender, nondistended. MUSCULOSKELETAL: No cyanosis, or edema. SKIN: Warm and dry. NEURO: No focal neurological deficitis. A/P Problem List: (1) Near syncope ICD Code: R55 - Syncope and collapse Status: Acute (2) Chest pain ICD Code: R07.9 - Chest pain, unspecified Status: Acute Assessment and Plan 72-year-old male admitted secondary to dizziness and chest pain Bilateral internal carotid artery aneurysms Possible left carotid artery dissection History of left-sided endarterectomy Possible contribution to dizziness vascular surgery consulted Follow clinically for symptoms Chest pain Negative cardiac workup Continue aspirin, Plavix, lisinopril Negative stress test within the year Dizziness History of brain aneurysm NOS Previous history of CVA Echocardiogram pending Carotid ultrasound pending Obtain MRI and MRA to evaluate for posterior infarctions and aneurysm Start meclizine Continue physical therapy Alternative etiology could be chronic labyrinthitis Consider steroids if workup is negative for infarctions or aneurysm Atrial fibrillation Continue aspirin and Plavix Hypertension Continue baseline treatment Follow blood pressures Adjust treatments as needed Continue lisinopril Continue Lopressor Nicotine dependence Smoking cessation recommended DVT prophylaxis SCD's Problem Qualifiers (1) Chest pain: Qualified Codes: R07.9 - Chest pain, unspecified Chris Whiting MD August 01, 2017 15:32
[2017-08-01] MEDS ORDERED: PILL SPLITTER OTHER PRN (15:45)
[2017-08-01] MEDS ORDERED: MORPHINE SULFATE 15 MG TAB PO PRN (15:45)
--- NOTE | 2017-08-01 15:59 | ECHRPT ---
Indication: CHEST PAIN CONCLUSIONS The left ventricular systolic function is normal with an estimated ejection fraction in the range of 55-60%. Normal left ventricular size. Mild concentric left ventricular hypertrophy. No regional wall motion abnormalities are present. Mild thickening of the mitral valve leaflets. Mitral annular calcification is present. Trace mitral valve regurgitation. Mild thickening of the aortic valve leaflets. Diffuse calcification of the aortic valve. Mild aortic valve regurgitation. Moderate aortic valve stenosis. There is trace tricuspid valve regurgitation. The estimated pulmonary arterial pressure is 38.3 mmHg. BP: 145 / 75 HR: 70 Rhythm: Sinus MEASUREMENTS (Male / Female) Normal Values Technical Quality:Good 2D ECHO LV Diastolic Diameter PLAX 4.7 cm 4.2 - 5.9 / 3.9 - 5.3 cm LV Systolic Diameter PLAX 3.5 cm IVS Diastolic Thickness 1.1 cm 0.6 - 1.0 / 0.6 - 0.9 cm LVPW Diastolic Thickness 1.2 cm 0.6 - 1.0 / 0.6 - 0.9 cm LV Relative Wall Thickness 0.5 LA Systolic Diameter LX 3.8 cm 3.0 - 4.0 / 2.7 - 3.8 cm LV Ejection Fraction MOD 4C 60.9 % LV Cardiac Index MOD 4C 2620.5 cm/minm LV Ejection Fraction 4C AL 62.5 % LV Cardiac Index 4C AL 2796.2 cm/minm M-MODE Aortic Root Diameter MM 2.1 cm LA Systolic Diameter MM 2.8 cm LA Ao Ratio MM 1.3 AV Cusp Separation MM 1.1 cm DOPPLER AV Peak Velocity 372.0 cm/s AV Peak Gradient 55.4 mmHg AV Mean Gradient 27.0 mmHg AV Velocity Time Integral 72.3 cm AI Peak Velocity 384.0 cm/s AI Peak Gradient 59.0 mmHg AI Pressure Half Time 370.0 ms LVOT Peak Velocity 105.5 cm/s LVOT Peak Gradient 4.5 mmHg LVOT Velocity Time Integral 23.6 cm AV Area Cont Eq vti 1.0 cm AV Area Cont Eq pk 0.9 cm MV Area PHT 2.4 cm Mitral E Point Velocity 87.4 cm/s Mitral A Point Velocity 104.0 cm/s Mitral E to A Ratio 0.8 LV E' Lateral Velocity 5.4 cm/s Mitral E to LV E' Lateral Ratio 16.3 LV E' Septal Velocity 6.1 cm/s Mitral E to LV E' Septal Ratio 14.2 TR Peak Velocity 266.0 cm/s TR Peak Gradient 28.3 mmHg Right Atrial Pressure 10.0 mmHg Pulmonary Artery Systolic Pressu 38.3 mmHg Right Ventricular Systolic Press 38.3 mmHg PV Peak Velocity 93.7 cm/s PV Peak Gradient 3.5 mmHg FINDINGS LEFT VENTRICLE The left ventricular systolic function is normal with an estimated ejection fraction in the range of 55-60%. Normal left ventricular size. Mild concentric left ventricular hypertrophy. No regional wall motion abnormalities are present. RIGHT VENTRICLE Normal right ventricular size and systolic function. LEFT ATRIUM The left atrial size is normal. RIGHT ATRIUM The right atrial size is normal. ATRIAL SEPTUM Normal atrial septal thickness without atrial level shunting by limited color doppler interrogation. AORTA The aortic root and proximal ascending aorta are normal in size on limited imaging. MITRAL VALVE Mild thickening of the mitral valve leaflets. Mitral annular calcification is present. Trace mitral valve regurgitation. AORTIC VALVE Trileaflet aortic valve. Mild thickening of the aortic valve leaflets. Diffuse calcification of the aortic valve. Mild aortic valve regurgitation. Moderate aortic valve stenosis. TRICUSPID VALVE Structurally normal tricuspid valve. There is trace tricuspid valve regurgitation. The estimated pulmonary arterial pressure is 38.3 mmHg. PULMONARY VALVE No pulmonary valve regurgitation or stenosis. VESSELS The inferior vena cava is normal in size. PERICARDIUM No pericardial effusion. Carlos Anne MD, FACC (Electronically Signed) Final Date:01 Aug 2017 15:58
[2017-08-01] MEDS: MORPHINE SULFATE 15 MG TAB PO PRN ×2 (18:30→22:24)
--- NOTE | 2017-08-01 19:20 | PD.CAR.PN ---
CVT Progress Note Subjective/Hospital Course: Referral received Full vascular surgery consult to follow Lesli De La Torre Objective: Vital Signs Date Time Temp Pulse Resp B/P (MAP) Pulse Ox O2 Delivery O2 Flow Rate FiO2 08/01/17 16:03 98.5 70 18 146/69 (94) 08/01/17 08:06 94 21 08/01/17 07:32 97.8 70 18 167/84 (111) 96 08/01/17 07:00 69 08/01/17 04:51 16 08/01/17 03:07 98.4 70 17 117/68 (84) 95 07/31/17 23:14 98.4 77 17 120/70 (87) 92 07/31/17 23:00 70 07/31/17 21:59 94 3.00 07/31/17 19:47 98.4 70 17 145/73 (97) 93 Result Diagram: 07/30/17 1100 07/31/17 1612 Timbo Parker MD August 01, 2017 19:20
[2017-08-01] MEDS: PRAZOSIN HCL 1 MG CAP PO SCH (20:12)
[2017-08-02] VITALS (8 sets, daily range): BP systolic 141–165; BP diastolic 70–82; PULSE 69–70; RESP 16–18; TEMP 97.4–98.7; O2SAT 92–96
[2017-08-02] MEDS: MECLIZINE HCL 25 MG TAB PO SCH ×2 (02:20→10:00)
[2017-08-02] MEDS: MORPHINE SULFATE 15 MG TAB PO PRN ×3 (03:13→20:50)
[2017-08-02] MEDS: DOCUSATE SODIUM 50 MG/SENNA 8.6 MG TAB PO SCH ×2 (09:00→20:47)
[2017-08-02] MEDS: METOPROLOL TARTRATE 25 MG TAB PO SCH (09:59)
[2017-08-02] MEDS: CLOPIDOGREL 75 MG TAB PO SCH (09:59)
[2017-08-02] MEDS: ASPIRIN EC 81 MG TABEC PO SCH (09:59)
[2017-08-02] MEDS: LISINOPRIL 10 MG TAB PO SCH (10:01)
[2017-08-02] MEDS ORDERED: NICOTINE 7 MG/24 HR PATCH T-DERMAL ONE (11:00)
--- NOTE | 2017-08-02 12:57 | HHI.PR ---
Subjective Remarks Patient reports having another severe dizzy spell earlier today. No other complaints. Pain control. He requests a NicoDerm patch. Objective Vital Signs Date Time Temp Pulse Resp B/P (MAP) Pulse Ox O2 Delivery O2 Flow Rate FiO2 08/02/17 11:17 97.8 70 16 142/70 (94) 92 08/02/17 10:06 97.4 70 18 141/70 (93) 95 08/02/17 04:13 20 08/02/17 03:30 98.7 69 17 165/77 (106) 96 08/01/17 23:42 98.3 70 17 126/67 (86) 92 08/01/17 23:00 70 08/01/17 20:19 97.3 70 16 130/73 (92) 92 08/01/17 20:07 95 08/01/17 16:03 98.5 70 18 146/69 (94) Result Diagram: 07/30/17 1100 07/31/17 1612 Objective Remarks GENERAL: NAD, A&Ox3 HEAD: Normocephalic. NECK: Supple, trachea midline. No lymphadenopathy. EYES: No scleral icterus. No injection or drainage. CARDIOVASCULAR: Regular rate and rhythm without murmurs, gallops, or rubs. RESPIRATORY: Breath sounds equal bilaterally. No accessory muscle use. GASTROINTESTINAL: Abdomen soft, non-tender, nondistended. MUSCULOSKELETAL: No cyanosis, or edema. SKIN: Warm and dry. NEURO: No focal neurological deficitis. A/P Problem List: (1) Near syncope ICD Code: R55 - Syncope and collapse Status: Acute (2) Chest pain ICD Code: R07.9 - Chest pain, unspecified Status: Acute Assessment and Plan 72-year-old male admitted secondary to dizziness and chest pain Nicotine patch added as a treatment. Opinion from vascular surgery pending. Continue meclizine. Bilateral internal carotid artery aneurysms Possible left carotid artery dissection History of left-sided endarterectomy Possible contribution to dizziness vascular surgery consulted Follow clinically for symptoms Chest pain Negative cardiac workup Continue aspirin, Plavix, lisinopril Negative stress test within the year Dizziness History of brain aneurysm NOS Previous history of CVA Echocardiogram pending Carotid ultrasound pending Obtain MRI and MRA to evaluate for posterior infarctions and aneurysm Start meclizine Continue physical therapy Alternative etiology could be chronic labyrinthitis Consider steroids if workup is negative for infarctions or aneurysm Atrial fibrillation Continue aspirin and Plavix Hypertension Continue baseline treatment Follow blood pressures Adjust treatments as needed Continue lisinopril Continue Lopressor Nicotine dependence Smoking cessation recommended NicoDerm DVT prophylaxis SCD's Problem Qualifiers (1) Chest pain: Qualified Codes: R07.9 - Chest pain, unspecified Chris Whiting MD August 02, 2017 12:57
[2017-08-02] MEDS ORDERED: predniSONE 20 MG TAB PO ONE (15:00)
[2017-08-02] MEDS: NICOTINE 7 MG/24 HR PATCH T-DERMAL SCH ×2 (15:11→15:13)
--- NOTE | 2017-08-02 16:03 | MB ---
cc: Timbo Parker MD DATE: 08/02/2017 REASON FOR CONSULTATION: Bilateral carotid aneurysms. HISTORY OF PRESENT ILLNESS: This 72-year-old male appearing his actual age, presents to the hospital with weakness, dizziness, chest pain, nausea and tingling in his left hand. The patient states that he has been weak and had problems for a long time, but this is now getting worse. No specific neurologic symptoms; however, are noted. On workup, the patient was found to have bilateral fusiform dilatation of the carotid arteries in the neck and on head CTA, he is found to have short segment dissection of the carotid on the left. Question arises if this has any clinical significance and should it be treated. PAST MEDICAL HISTORY: Complex. Coronary artery disease, hypertension, history of atrial fibrillation. PAST SURGICAL HISTORY: Pacemaker placement and left carotid endarterectomy. ALLERGIES: PATIENT IS ALLERGIC TO IODINE AND SHELLFISH. MEDICATIONS: He is on a number of medications. SOCIAL HISTORY: The patient smokes about 1/2 to 1 pack a day and drinks occasionally. PHYSICAL EXAMINATION: GENERAL: Reveals a fairly thin 72-year-old gentleman in no acute distress. HEENT: Normocephalic. No trauma to the head. Pupils are equal, reactive. Extraocular muscles intact. NECK: Bilateral carotid pulses and I do not hear any bruits. He has a faintly visible scar on his left neck from previous carotid surgery many years ago. CHEST: Bilateral breath sounds, decreased over both lung crabtree consistent with some moderate degree of COPD. Chest wall musculature loss consistent with moderate pulmonary cachexia. HEART: Regular rhythm at this time; however, there is some question of atrial fibrillation or at least paroxysmal atrial fibrillation. ABDOMEN: Soft. No rebound, no guarding, no masses. EXTREMITIES: The patient has good proximal distal pulses. No signs of acute vascular deficit. NEUROLOGIC: The patient is grossly intact. IMPRESSION AND RECOMMENDATIONS: I reviewed laboratory and diagnostic procedures. At this point, the patient has fusiform dilatation of both carotid arteries to about 1.2 cm on the left and about 8 mm on the right. This is not hemodynamically significant and has no bearing on the patient's current symptoms. In addition, the patient had left carotid endarterectomy, so he probably had a patch placed which obviously will allow the artery to appear somewhat larger and this may be a postop change in addition, therefore. Carotid aneurysms are treated in a variety of ways from asymptomatic aneurysm which would be probably left alone because the rupture is very, very rare to symptomatic aneurysms which are causing arterial emboli to the brain with either transient ischemic attacks or strokes. Those can be treated with either endovascular stenting with a covered Viabahn stents or with open surgery resection, interplacement of saphenous vein grafts. At this point, this patient has very elusive symptoms which could be attributed to either cardiac disease, small vessel disease of the brain, intake of medications, paroxysmal atrial fibrillation and a number of other maladies. I do not believe that this fusiform dilatation of carotid arteries warrants any surgery or endovascular intervention because risk would outweigh absolutely any benefits, so patient will not need my service at this time. I thank you very much for your referral. MD MARISA Fortune/KEITH , 02:16 PM , 04:02 PM
[2017-08-02] MEDS: PRAZOSIN HCL 1 MG CAP PO SCH (20:47)
[2017-08-03] VITALS (7 sets, daily range): BP systolic 156–183; BP diastolic 76–98; PULSE 70–96; RESP 16–20; TEMP 96.1–97.7; O2SAT 92–98
[2017-08-03] MEDS: DOCUSATE SODIUM 50 MG/SENNA 8.6 MG TAB PO SCH ×2 (09:00→21:33)
[2017-08-03] MEDS: ASPIRIN EC 81 MG TABEC PO SCH (09:33)
[2017-08-03] MEDS: predniSONE 20 MG TAB PO SCH (09:34)
[2017-08-03] MEDS: CLOPIDOGREL 75 MG TAB PO SCH (09:34)
[2017-08-03] MEDS: METOPROLOL TARTRATE 25 MG TAB PO SCH (09:34)
[2017-08-03] MEDS: LISINOPRIL 10 MG TAB PO SCH (09:34)
[2017-08-03] MEDS: REMOVE OLD PATCH T-DERMAL SCH (09:35)
[2017-08-03] MEDS: NICOTINE 7 MG/24 HR PATCH T-DERMAL SCH (09:35)
[2017-08-03] MEDS: MORPHINE SULFATE 15 MG TAB PO PRN (09:41)
--- NOTE | 2017-08-03 10:04 | HHI.PR ---
Subjective Remarks Patient has been evaluated by vascular surgery. His bilateral carotid aneurysms are not considered to be a very high increased risk for stroke or contributory to his vertigo. I have had him on meclizine without benefit. I transition him over to prednisone last night to try to cover for possible chronic labyrinthitis. Patient expresses concerns for risk of fall and injury secondary to his vertigo. Objective Vital Signs Date Time Temp Pulse Resp B/P (MAP) Pulse Ox O2 Delivery O2 Flow Rate FiO2 08/03/17 08:42 98 21 08/03/17 07:50 96.6 72 20 166/98 (120) 98 08/03/17 03:41 97.5 70 16 156/76 (102) 95 08/02/17 23:47 97.5 70 16 147/70 (95) 93 08/02/17 23:00 69 08/02/17 21:50 20 08/02/17 19:40 97.7 70 16 164/78 (106) 93 157/80 (105) 155/75 (101) 08/02/17 15:50 98.1 70 16 142/82 (102) 96 08/02/17 11:17 97.8 70 16 142/70 (94) 92 08/02/17 10:06 97.4 70 18 141/70 (93) 95 Result Diagram: 07/30/17 1100 07/31/17 1612 Objective Remarks GENERAL: NAD, A&Ox3 HEAD: Normocephalic. NECK: Supple, trachea midline. No lymphadenopathy. EYES: No scleral icterus. No injection or drainage. CARDIOVASCULAR: Regular rate and rhythm without murmurs, gallops, or rubs. RESPIRATORY: Breath sounds equal bilaterally. No accessory muscle use. GASTROINTESTINAL: Abdomen soft, non-tender, nondistended. MUSCULOSKELETAL: No cyanosis, or edema. SKIN: Warm and dry. NEURO: No focal neurological deficitis. A/P Problem List: (1) Near syncope ICD Code: R55 - Syncope and collapse Status: Acute (2) Chest pain ICD Code: R07.9 - Chest pain, unspecified Status: Acute Assessment and Plan 72-year-old male admitted secondary to dizziness and chest pain Dizziness is still present. Patient reports high concern for fall. he does not feel safe for discharge. Bilateral internal carotid artery aneurysms Possible left carotid artery dissection History of left-sided endarterectomy Vascular surgery has evaluated this patient Vascular surgery feels there is no correlation to the patient's vertigo No surgery recommended Chest pain No recurrence Negative cardiac workup Continue aspirin, Plavix, lisinopril Negative stress test within the year Dizziness Chronic vertigo History of brain aneurysm NOS Previous history of CVA Echocardiogram shows changes of age, no acute or contributory pathology. Carotid ultrasound and CTA showed bilateral carotid aneurysms, evaluated by vascular surgery. No correlation to vertigo. Continue prednisone for possible labyrinthitis. Neurology consult for further evaluation and expertise. Continue physical therapy for balance testing, no musculoskeletal deficit. Atrial fibrillation Continue aspirin and Plavix Hypertension Continue baseline treatment Follow blood pressures Adjust treatments as needed Continue lisinopril Continue Lopressor Nicotine dependence Smoking cessation recommended NicoDerm DVT prophylaxis SCD's Problem Qualifiers (1) Chest pain: Qualified Codes: R07.9 - Chest pain, unspecified Chris Whiting MD August 03, 2017 10:04
--- NOTE | 2017-08-03 11:28 | PD.CONS ---
History of Present Illness Service Neurology Consult Requested By Medical Reason for Consult Dizziness Primary Care Physician Unknown History of Present Illness 72 y/o male admitted for near syncope. History is significant carotid disease. Seen by vascular surgery regarding abnormal CTA results. Takes Plavix daily admits to smoking about half a pack a day. States he is traveling over from [place] prior to see whether he wants to take residence appear. Also complains of vertigo, spinning sensation especially when he stands up or turns his head [id number]. Denies any headache, head or neck trauma focal weakness visual loss or language disturbance. Has had this happen to him before Review of Systems As above and admission H&P Past Family Social History Past Medical History CAD/ CVA/hypertension Past Surgical History carotid endarterectomy/ pacemaker placement. Reported Medications aspirin/ plavix/lisinopril/prazosin Allergies: Coded Allergies: fish derived (Verified Allergy, Unknown, HIVES, 07/30/17) iodine (Verified Allergy, Unknown, HIVES, 07/30/17) Social History smokes half a pack/ drinks occasionally. Cessation strongly encouraged to the patient risks of continued smoking discussed including stroke heart attack lung cancer Review of Systems All other ROS: ROS reviewed as documented in chart Past Family Social History Allergies: Coded Allergies: fish derived (Verified Allergy, Unknown, HIVES, 07/30/17) iodine (Verified Allergy, Unknown, HIVES, 07/30/17) MRI PRECAUTION (Verified Adverse Reaction, Severe, 07/31/17) Patient has a [employer] compatible pacemaker with Non-compatible leads. Model # WD0230 Leads: RVA-2088TC/58 (non compatible) RA-2088TC/52 (non compatible) EG 07/31/2017 Active Ordered Medications Current Medications Medications (Trade) Dose Ordered Sig/Norma Route Start Time Stop Time Status Last Admin (NS Flush) 2 ml UNSCH PRN IVF 07/30/17 11:00 07/30/17 11:15 (Tylenol) 650 mg Q4H PRN PO 07/30/17 18:45 (Narcan Inj) 0.4 mg UNSCH PRN IV PUSH 07/30/17 18:45 (Tisha-Colace) 1 tab BID PO 07/30/17 21:00 08/02/17 20:47 (Milk Of Magnesia Liq) 30 ml Q12H PRN PO 07/30/17 18:45 (Senokot) 17.2 mg Q12H PRN PO 07/30/17 18:45 (Dulcolax Supp) 10 mg DAILY PRN RECTAL 07/30/17 18:45 (Lactulose Liq) 30 ml DAILY PRN PO 07/30/17 18:45 (Zofran Odt) 4 mg Q6H PRN PO 07/30/17 18:45 (Nitrostat Sl) 0.4 mg Q5M PRN SL 07/30/17 18:45 07/30/17 20:20 (Apresoline) 25 mg Q8HR PRN PO 07/30/17 18:45 (Plavix) 75 mg DAILY PO 07/31/17 09:00 08/03/17 09:34 (Minipress) 1 mg HS PO 07/30/17 21:00 08/02/17 20:47 (Prinivil) 10 mg DAILY PO 07/30/17 19:30 08/03/17 09:34 (Lopressor) 25 mg DAILY PO 07/31/17 09:00 08/03/17 09:34 (Vasotec Inj) 1.25 mg Q8H PRN IV PUSH 07/30/17 19:30 (Morphine Inj) 2 mg Q3H PRN IV PUSH 07/30/17 19:30 (Ecotrin Ec) 81 mg DAILY PO 07/31/17 09:00 08/03/17 09:33 (Msir) 15 mg Q4H PRN PO 08/01/17 15:45 08/03/17 09:41 (Msir) 7.5 mg Q4HR PRN PO 08/01/17 15:45 (Pill Splitter) 1 ea UNSCH PRN OTHER 08/01/17 15:45 (Habitrol 7 Mg Patch.24 Hr) 1 patch DAILY T-DERMAL 08/03/17 09:00 08/03/17 09:35 Miscellaneous Information 1 DAILY T-DERMAL 08/03/17 09:00 08/03/17 09:35 (Deltasone) 20 mg DAILY PO 08/03/17 09:00 08/03/17 09:34 Exam I&O / VS Vital Signs Date Time Temp Pulse Resp B/P (MAP) Pulse Ox O2 Delivery O2 Flow Rate FiO2 08/03/17 08:42 98 21 08/03/17 07:50 96.6 72 20 166/98 (120) 98 08/03/17 03:41 97.5 70 16 156/76 (102) 95 08/02/17 23:47 97.5 70 16 147/70 (95) 93 08/02/17 23:00 69 08/02/17 21:50 20 08/02/17 19:40 97.7 70 16 164/78 (106) 93 157/80 (105) 155/75 (101) 08/02/17 15:50 98.1 70 16 142/82 (102) 96 General: Alert and Oriented, No acute distress Eye: EOMI Respiratory: Non-labored respirations Musculoskeletal: ROM Neurologic: Alert, Oriented, Normal sensory, Normal motor, CN II-XII intact, Normal DTR's Psychiatric: Cooperative, Appropriate mood & affect Exam Comments Awake alert oriented 3 fluent articulate no aphasia extraocular movements intact OU 3 2 mm. This challenging to perform the Cygnet-Hallpike maneuver and the head thrust maneuver as discussed a lot of rigidity and difficulty turning his head side to side. He did have mild right rotatory nystagmus. No pronator drift no dysmetria reflexes symmetric Review/Management Diagnosis/Plan: (1) BPV (benign positional vertigo) ICD Codes: H81.10 - Benign paroxysmal vertigo, unspecified ear Status: Acute Plan: Likely peripheral vestibulopathy provocative maneuvering techniques limited due to patient's neck rigidity head and history of carotid disease Recommendations meclizine as needed Unable to get MRIs due to pacemaker Outpatient vestibular therapy consideration PT eval Obtain a follow-up CT scan to make sure he has had a small cerebellar infarct; however the treatment would be the same continue antiplatelets and that he stop smoking blood pressure lipid control Should see a interventional tech to consider pacemaker interrogation to rule out any A. fib defer that to the medical team (2) Carotid disease, bilateral ICD Codes: I77.9 - Disorder of arteries and arterioles, unspecified Status: Chronic Plan: Seen by vascular surgery. History of left carotid revascularization. Recommendation antiplatelets Tobacco cessation Lipid control (3) Tobacco use ICD Codes: Z72.0 - Tobacco use Status: Chronic Plan: Cessation strongly encouraged (4) HTN (hypertension) ICD Codes: I10 - Essential (primary) hypertension Status: Chronic Plan: Goal 120/80 or less Problem Qualifiers (1) HTN (hypertension): Qualified Codes: I10 - Essential (primary) hypertension Teto Patel MD August 03, 2017 11:28
--- NOTE | 2017-08-03 15:00 | HHI.PR ---
Subjective Remarks For dizziness NOT SEEN Objective Vitals Vital Signs Date Time Temp Pulse Resp B/P (MAP) Pulse Ox O2 Delivery O2 Flow Rate FiO2 08/03/17 11:51 96.1 96 20 183/97 (125) 96 08/03/17 11:29 20 08/03/17 08:42 98 21 08/03/17 07:50 96.6 72 20 166/98 (120) 98 08/03/17 03:41 97.5 70 16 156/76 (102) 95 08/02/17 23:47 97.5 70 16 147/70 (95) 93 08/02/17 23:00 69 08/02/17 19:40 97.7 70 16 164/78 (106) 93 157/80 (105) 155/75 (101) 08/02/17 15:50 98.1 70 16 142/82 (102) 96 I/O 08/02/17 08/02/17 08/02/17 08/03/17 08/03/17 08/03/17 07:00 15:00 23:00 07:00 15:00 23:00 Intake Total 480 ml Output Total 200 ml Balance 280 ml Intake Oral 480 ml Output Urine Total 200 ml Result Diagram: 07/30/17 1100 07/31/17 1612 Imaging Last Impressions Neck CTA 08/01/17 0000 Signed Impressions: Service Date/Time: Tuesday, August 01, 2017 11:26 - CONCLUSION: 1. No significant carotid flow limiting stenosis. 2. Postsurgical features consistent with prior left carotid endarterectomy. 3. Fusiform aneurysms of the proximal internal carotid arteries bilaterally. This measures up to 11 mm on the right and 13 mm on the left. There is moderate eccentric mural thrombus in the left internal carotid aneurysm. 4. 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 This measures 9 mm on the right and 3 x 10 mm on the left , as above. 5. Patent bilateral vertebral arteries. Toribio Lopez MD Head CTA 08/01/17 0000 Signed Impressions: Service Date/Time: Tuesday, August 01, 2017 11:26 - CONCLUSION: 1. No intracranial aneurysm is identified. If previous imaging can be made available this would be helpful to increase the sensitivity in evaluation. 2. Abnormal appearance of the distal left internal carotid below the skull base with a short segment area of dissection and aneurysmal dilation immediately beneath this. Maximum dimension of the aneurysmal segment of carotid is approximately 7 mm. 3. Wide necked area of aneurysmal dilation involving the distal right internal carotid below the skull base with a maximum dimension of 8.8 mm. Chris Kent MD Head CT 08/01/17 0000 Signed Impressions: Service Date/Time: Tuesday, August 01, 2017 11:26 - CONCLUSION: Normal examination for a patient of this age. Bharath Anderson MD Chest X-Ray 07/30/17 1058 Signed Impressions: Service Date/Time: Sunday, July 30, 2017 11:36 - CONCLUSION: Stable chest Jamil Kent MD FACR Carotid Artery Ultrasound 07/30/17 0000 Signed Impressions: Service Date/Time: Sunday, July 30, 2017 21:01 - CONCLUSION: 1. Moderate plaque at the left carotid bulb region with the lumen being narrowed by approximately 50%%. 2. Mild plaque without significant stenosis of the right carotid bulb region. Juan Francisco Boyer MD Objective Remarks GENERAL: NAD, A&Ox3 HEAD: Normocephalic. NECK: Supple, trachea midline. No lymphadenopathy. EYES: No scleral icterus. No injection or drainage. CARDIOVASCULAR: Regular rate and rhythm without murmurs, gallops, or rubs. RESPIRATORY: Breath sounds equal bilaterally. No accessory muscle use. GASTROINTESTINAL: Abdomen soft, non-tender, nondistended. MUSCULOSKELETAL: No cyanosis, or edema. SKIN: Warm and dry. NEURO: No focal neurological deficits. Procedures None A/P Problem List: (1) Near syncope ICD Code: R55 - Syncope and collapse Status: Acute (2) Chest pain ICD Code: R07.9 - Chest pain, unspecified Status: Acute Assessment and Plan 72-year-old male admitted secondary to dizziness and chest pain Dizziness is still present. Patient reports high concern for fall. he does not feel safe for discharge. Bilateral internal carotid artery aneurysms Possible left carotid artery dissection History of left-sided endarterectomy Vascular surgery has evaluated this patient Vascular surgery feels there is no correlation to the patient's vertigo No surgery recommended Chest pain No recurrence Negative cardiac workup Continue aspirin, Plavix, lisinopril Negative stress test within the year Dizziness Chronic vertigo History of brain aneurysm NOS Previous history of CVA Echocardiogram shows changes of age, no acute or contributory pathology. Carotid ultrasound and CTA showed bilateral carotid aneurysms, evaluated by vascular surgery. No correlation to vertigo. Continue prednisone for possible labyrinthitis. Neurology consult for further evaluation and expertise. Continue physical therapy for balance testing, no musculoskeletal deficit. Atrial fibrillation Continue aspirin and Plavix Hypertension Continue baseline treatment Follow blood pressures Adjust treatments as needed Continue lisinopril Continue Lopressor Nicotine dependence Smoking cessation recommended NicoDerm DVT prophylaxis SCD's Problem Qualifiers (1) Chest pain: Qualified Codes: R07.9 - Chest pain, unspecified Home West MD August 03, 2017 15:00
[2017-08-03 16:20] LABS: CHOLESTEROL 113 MG/DL (120-200); TRIGLYCERIDES 66 MG/DL (42-150)
[2017-08-03 16:47] LABS: CHOLESTEROL/ HDL RATIO 3.42 RATIO; LDL CHOLESTEROL 67 MG/DL (0-99)
[2017-08-03] MEDS: PRAZOSIN HCL 1 MG CAP PO SCH (21:32)
[2017-08-04] VITALS (7 sets, daily range): BP systolic 140–175; BP diastolic 78–92; PULSE 69–74; RESP 16–20; TEMP 97.7–97.8; O2SAT 92–95
--- NOTE | 2017-08-04 09:28 | RADRPT ---
EXAM DATE/TIME: 08/04/2017 09:04 [facility] COMPARISON: CTA BRAIN W 3D RECON, August 01, 2017, 11:26. INDICATIONS : Altered mental status RADIATION DOSE: 36.03 CTDIvol (mGy) MEDICAL HISTORY : Hypertension. SURGICAL HISTORY : Carotid endarterectomy. ENCOUNTER: Subsequent ACUITY: 3 days PAIN SCALE: 0/10 LOCATION: cranial TECHNIQUE: Multiple contiguous axial images were obtained of the head. Using automated exposure control and adj ustment of the mA and/or kV according to patient size, radiation dose was kept as low as reasonably a chievable to obtain optimal diagnostic quality images. DICOM format image data is available electro nically for review and comparison. FINDINGS: CEREBRUM: The ventricles are normal for age. No evidence of midline shift, mass lesion, hemorrhage or acute in farction. No extra-axial fluid collections are seen. POSTERIOR FOSSA: The cerebellum and brainstem are intact. The 4th ventricle is midline. The cerebellopontine angle i s unremarkable. EXTRACRANIAL: The visualized portion of the orbits is intact. SKULL: The calvaria is intact. No evidence of skull fracture. CONCLUSION: 1. Unremarkable scan 2. No evidence of acute infarct, hemorrhage, mass or edema. Robert Avila MD on August 04, 2017 at 9:24 Board Certified Radiologist. This report was verified electronically.
[2017-08-04] MEDS: ASPIRIN EC 81 MG TABEC PO SCH (09:29)
[2017-08-04] MEDS: CLOPIDOGREL 75 MG TAB PO SCH (09:29)
[2017-08-04] MEDS: METOPROLOL TARTRATE 25 MG TAB PO SCH (09:30)
[2017-08-04] MEDS: predniSONE 20 MG TAB PO SCH (09:30)
[2017-08-04] MEDS: DOCUSATE SODIUM 50 MG/SENNA 8.6 MG TAB PO SCH (09:30)
[2017-08-04] MEDS: LISINOPRIL 10 MG TAB PO SCH (09:30)
[2017-08-04] MEDS: REMOVE OLD PATCH T-DERMAL SCH (09:32)
[2017-08-04] MEDS: NICOTINE 7 MG/24 HR PATCH T-DERMAL SCH (09:32)
--- NOTE | 2017-08-04 10:09 | PD.CAR.PN ---
CVT Progress Note Subjective/Hospital Course: Referral received Full vascular surgery consult to charles De La Torre 08/04/[address] Reynolds's evaluation and recommendations I reviewed laboratory and diagnostic procedures. At this point, the patient has fusiform dilatation of both carotid arteries to about 1.2 cm on the left and about 8 mm on the right. This is not hemodynamically significant and has no bearing on the patient's current symptoms. In addition, the patient had left carotid endarterectomy, so he probably had a patch placed which obviously will allow the artery to appear somewhat larger and this may be a postop change in addition, therefore. Carotid aneurysms are treated in a variety of ways from asymptomatic aneurysm which would be probably left alone because the rupture is very, very rare to symptomatic aneurysms which are causing arterial emboli to the brain with either transient ischemic attacks or strokes. Those can be treated with either endovascular stenting with a covered Viabahn stents or with open surgery resection, interplacement of saphenous vein grafts. At this point , this patient has very elusive symptoms which could be attributed to either cardiac disease, small vessel disease of the brain, intake of medications, paroxysmal atrial fibrillation and a number of other maladies. I do not believe that this fusiform dilatation of carotid arteries warrants any surgery or endovascular intervention because risk would outweigh absolutely any benefits. Patient should be treated with cessation of smoking antiplatelet therapy and blood pressure control No surgical intervention is indicated at this time Objective: Vital Signs Date Time Temp Pulse Resp B/P (MAP) Pulse Ox O2 Delivery O2 Flow Rate FiO2 08/04/17 07:39 97.7 74 16 175/86 (115) 92 08/04/17 07:31 69 08/04/17 04:10 97.8 70 18 160/83 (108) 93 08/04/17 01:51 69 08/04/17 01:50 97.8 74 18 164/78 (106) 95 08/03/17 21:24 97.7 70 16 182/88 (119) 93 08/03/17 16:36 71 08/03/17 15:50 96.1 70 20 172/93 (119) 92 08/03/17 11:51 96.1 96 20 183/97 (125) 96 08/03/17 11:29 20 Result Diagram: 07/31/17 1612 Timbo Parker MD August 04, 2017 10:09
--- NOTE | 2017-08-04 10:22 | HHI.PR ---
Review/Management Diagnosis/Plan: (1) BPV (benign positional vertigo) ICD Codes: H81.10 - Benign paroxysmal vertigo, unspecified ear Status: Acute Plan: Likely peripheral vestibulopathy provocative maneuvering techniques limited due to patient's neck rigidity head and history of carotid disease Recommendations meclizine as needed Neuro stable Patient states he is homeless and states that is his major concern does not know where he will go. Social work to assist Follow-up CT scan unremarkable Can be discharged from neurologic standpoint Should see a office correspondent to consider pacemaker interrogation to rule out any A. fib defer that to the medical team (2) Carotid disease, bilateral ICD Codes: I77.9 - Disorder of arteries and arterioles, unspecified Status: Chronic Plan: Seen by vascular surgery. History of left carotid revascularization. Recommendation antiplatelets Tobacco cessation Lipid control (3) Tobacco use ICD Codes: Z72.0 - Tobacco use Status: Chronic Plan: Cessation strongly encouraged (4) HTN (hypertension) ICD Codes: I10 - Essential (primary) hypertension Status: Chronic Plan: Goal 120/80 or less Subjective Subjective Comments No acute events reported Dizziness better Patient states he thinks he is homeless and states that is his main concern. [facility] No headache No chest pain No dyspnea Active Medications Current Medications Medications (Trade) Dose Ordered Sig/Norma Route Start Time Stop Time Status Last Admin (NS Flush) 2 ml UNSCH PRN IVF 07/30/17 11:00 07/30/17 11:15 (Tylenol) 650 mg Q4H PRN PO 07/30/17 18:45 (Narcan Inj) 0.4 mg UNSCH PRN IV PUSH 07/30/17 18:45 (Tisha-Colace) 1 tab BID PO 07/30/17 21:00 08/03/17 21:33 (Milk Of Magnesia Liq) 30 ml Q12H PRN PO 07/30/17 18:45 (Senokot) 17.2 mg Q12H PRN PO 07/30/17 18:45 (Dulcolax Supp) 10 mg DAILY PRN RECTAL 07/30/17 18:45 (Lactulose Liq) 30 ml DAILY PRN PO 07/30/17 18:45 (Zofran Odt) 4 mg Q6H PRN PO 07/30/17 18:45 (Nitrostat Sl) 0.4 mg Q5M PRN SL 07/30/17 18:45 07/30/17 20:20 (Apresoline) 25 mg Q8HR PRN PO 07/30/17 18:45 (Plavix) 75 mg DAILY PO 07/31/17 09:00 08/04/17 09:29 (Minipress) 1 mg HS PO 07/30/17 21:00 08/03/17 21:32 (Prinivil) 10 mg DAILY PO 07/30/17 19:30 08/04/17 09:30 (Lopressor) 25 mg DAILY PO 07/31/17 09:00 08/04/17 09:30 (Vasotec Inj) 1.25 mg Q8H PRN IV PUSH 07/30/17 19:30 (Morphine Inj) 2 mg Q3H PRN IV PUSH 07/30/17 19:30 (Ecotrin Ec) 81 mg DAILY PO 07/31/17 09:00 08/04/17 09:29 (Msir) 15 mg Q4H PRN PO 08/01/17 15:45 08/03/17 09:41 (Msir) 7.5 mg Q4HR PRN PO 08/01/17 15:45 08/03/17 21:35 (Pill Splitter) 1 ea UNSCH PRN OTHER 08/01/17 15:45 (Habitrol 7 Mg Patch.24 Hr) 1 patch DAILY T-DERMAL 08/03/17 09:00 08/04/17 09:32 Miscellaneous Information 1 DAILY T-DERMAL 08/03/17 09:00 08/03/17 09:35 (Deltasone) 20 mg DAILY PO 08/03/17 09:00 08/04/17 09:30 Allergies Allergies Coded Allergies fish derived (Verified Allergy, Unknown, HIVES, 07/30/17) iodine (Verified Allergy, Unknown, HIVES, 07/30/17) MRI PRECAUTION (Verified Adverse Reaction, Severe, 07/31/17) Review of Systems All other ROS: ROS reviewed as documented in chart Exam I&O / VS Vital Signs Date Time Temp Pulse Resp B/P (MAP) Pulse Ox O2 Delivery O2 Flow Rate FiO2 08/04/17 07:39 97.7 74 16 175/86 (115) 92 08/04/17 07:31 69 08/04/17 04:10 97.8 70 18 160/83 (108) 93 08/04/17 01:51 69 08/04/17 01:50 97.8 74 18 164/78 (106) 95 08/03/17 21:24 97.7 70 16 182/88 (119) 93 08/03/17 16:36 71 08/03/17 15:50 96.1 70 20 172/93 (119) 92 08/03/17 11:51 96.1 96 20 183/97 (125) 96 08/03/17 11:29 20 General: Alert and Oriented, No acute distress Eye: EOMI Respiratory: Non-labored respirations Musculoskeletal: ROM Neurologic: Alert, Oriented, Normal sensory, Normal motor, CN II-XII intact, Normal DTR's Psychiatric: Cooperative, Appropriate mood & affect Exam Comments Awake alert oriented 3 fluent articulate no aphasia extraocular movements intact OU 3 2 mm. Mild head thrust does have nystagmus to the right more than the left No pronator drift no dysmetria reflexes symmetric Objective Micro and Labs Laboratory Tests Test 08/03/17 15:29 Erythrocyte Sedimentation Rate 13 Triglycerides Level 66 Cholesterol Level 113 LDL Cholesterol 67 HDL Cholesterol 33.0 Cholesterol/HDL Ratio 3.42 Vitamin B12 Level 382 Problem Qualifiers (1) HTN (hypertension): Qualified Codes: I10 - Essential (primary) hypertension Teto Patel MD August 04, 2017 10:22
[2017-08-04] MEDS ORDERED: NICO1DIS8 T-DERMAL (10:29)
[2017-08-04] MEDS ORDERED: METO25TA3 PO (10:29)
[2017-08-04] MEDS ORDERED: ECASA81 PO (10:29)
[2017-08-04] MEDS ORDERED: LISI10TA3 PO (10:29)
--- NOTE | 2017-08-04 10:29 | HHI.DCPOC ---
Discharge Care Plan Diagnosis: (1) HTN (hypertension) (2) BPV (benign positional vertigo) Your Health Problems Are: Difficulty with ADL Exercise Tolerance Goals to Promote Your Health * To prevent worsening of your condition and complications * To maintain your health at the optimal level Directions to Meet Your Goals Take your medications as prescribed Follow your dietary instruction Follow activity as directed Keep your appointments as scheduled Take your immunizations and boosters as scheduled If your symptoms worsen call your PCP, if no PCP go to Urgent Care Center or Emergency Room Smoking is Dangerous to Your Health. Avoid second hand smoke Call the 24-hour hour crisis hotline for domestic abuse at [facility] MD August 04, 2017 10:29
[2017-08-04] MEDS ORDERED: MECLIZINE HCL 25 MG TAB PO PRN (10:30)
[2017-08-04] MEDS ORDERED: LISINOPRIL 10 MG TAB PO ONE (10:30)
[2017-08-04] MEDS ORDERED: MECL-62 PO (10:32)
--- NOTE | 2017-08-04 10:35 | HHI.PR ---
Subjective Remarks Follow-up vertigo. He is feeling better ambulated in the hallway without symptoms. He is also getting stronger. BP elevated denies headache, dizziness , chest pain and shortness of breath. Discussed with nursing Objective Vitals Vital Signs Date Time Temp Pulse Resp B/P (MAP) Pulse Ox O2 Delivery O2 Flow Rate FiO2 08/04/17 07:39 97.7 74 16 175/86 (115) 92 08/04/17 07:31 69 08/04/17 04:10 97.8 70 18 160/83 (108) 93 08/04/17 01:51 69 08/04/17 01:50 97.8 74 18 164/78 (106) 95 08/03/17 21:24 97.7 70 16 182/88 (119) 93 08/03/17 16:36 71 08/03/17 15:50 96.1 70 20 172/93 (119) 92 08/03/17 11:51 96.1 96 20 183/97 (125) 96 08/03/17 11:29 20 I/O 08/03/17 08/03/17 08/03/17 08/04/17 08/04/17 08/04/17 07:00 15:00 23:00 07:00 15:00 23:00 Intake Total 480 ml Output Total 200 ml 100 ml Balance 280 ml -100 ml Intake Oral 480 ml Output Urine Total 200 ml 100 ml # Voids 1 Result Diagram: 07/31/17 1612 Imaging Last Impressions Head CT 08/04/17 0600 Signed Impressions: Service Date/Time: Friday, August 04, 2017 09:04 - CONCLUSION: 1. Unremarkable scan 2. No evidence of acute infarct, hemorrhage, mass or edema. Robert Avila MD Neck CTA 08/01/17 0000 Signed Impressions: Service Date/Time: Tuesday, August 01, 2017 11:26 - CONCLUSION: 1. No significant carotid flow limiting stenosis. 2. Postsurgical features consistent with prior left carotid endarterectomy. 3. Fusiform aneurysms of the proximal internal carotid arteries bilaterally. This measures up to 11 mm on the right and 13 mm on the left. There is moderate eccentric mural thrombus in the left internal carotid aneurysm. 4. 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 This measures 9 mm on the right and 3 x 10 mm on the left , as above. 5. Patent bilateral vertebral arteries. Toribio Lopez MD Head CTA 08/01/17 0000 Signed Impressions: Service Date/Time: Tuesday, August 01, 2017 11:26 - CONCLUSION: 1. No intracranial aneurysm is identified. If previous imaging can be made available this would be helpful to increase the sensitivity in evaluation. 2. Abnormal appearance of the distal left internal carotid below the skull base with a short segment area of dissection and aneurysmal dilation immediately beneath this. Maximum dimension of the aneurysmal segment of carotid is approximately 7 mm. 3. Wide necked area of aneurysmal dilation involving the distal right internal carotid below the skull base with a maximum dimension of 8.8 mm. Chris Kent MD Chest X-Ray 07/30/17 1058 Signed Impressions: Service Date/Time: Sunday, July 30, 2017 11:36 - CONCLUSION: Stable chest Jamil Kent MD FACR Carotid Artery Ultrasound 07/30/17 0000 Signed Impressions: Service Date/Time: Sunday, July 30, 2017 21:01 - CONCLUSION: 1. Moderate plaque at the left carotid bulb region with the lumen being narrowed by approximately 50%%. 2. Mild plaque without significant stenosis of the right carotid bulb region. Juan Francisco Boyer MD Objective Remarks GENERAL: NAD, A&Ox3 CARDIOVASCULAR: Regular rate and rhythm without gallops, or rubs. Murmur noted RESPIRATORY: Breath sounds equal bilaterally. No accessory muscle use. GASTROINTESTINAL: Abdomen soft, non-tender, nondistended. MUSCULOSKELETAL: No cyanosis, or edema. SKIN: Warm and dry. NEURO: No focal neurological deficits. Procedures None A/P Problem List: (1) Near syncope ICD Code: R55 - Syncope and collapse Status: Acute (2) Chest pain ICD Code: R07.9 - Chest pain, unspecified Status: Acute Assessment and Plan 72-year-old male admitted secondary to dizziness and chest pain BPV. Repeat head CT without CVA. He is improving. Meclizine as needed. Outpatient vestibular clinic follow-up. Fall precautions Bilateral internal carotid artery aneurysms Possible left carotid artery dissection History of left-sided endarterectomy Vascular surgery has evaluated this patient Vascular surgery feels there is no correlation to the patient's vertigo No surgery recommended Chest pain No recurrence Negative cardiac workup Continue aspirin, Plavix, lisinopril Negative stress test within the year History of brain aneurysm NOS Previous history of CVA Echocardiogram shows changes of age, no acute or contributory pathology. Carotid ultrasound and CTA showed bilateral carotid aneurysms, evaluated by vascular surgery. No correlation to vertigo. Discontinue prednisone Neurology consult for further evaluation and expertise. Continue physical therapy for balance testing, no musculoskeletal deficit. Atrial fibrillation Continue aspirin and Plavix Hypertension Continue baseline treatment Follow blood pressures Adjust treatments as needed Suboptimal control with increase lisinopril to 20 mg daily. Continue Lopressor Nicotine dependence Smoking cessation recommended NicoDerm Mild anemia and thrombocytopenia. No gross bleeding. Outpatient follow-up DVT prophylaxis SCD's Discharge Planning Stable for discharge Problem Qualifiers (1) Chest pain: Qualified Codes: R07.9 - Chest pain, unspecified [facility] MD August 04, 2017 10:35
--- NOTE | 2017-08-04 10:37 | HHI.DS ---
Discharge Summary Admission Date July 30, 2017 at 18:39 Discharge Date: August 04, 2017 Admitting Diagnosis Near syncope; chest pain (1) Near syncope ICD Code: R55 - Syncope and collapse Diagnosis: Principal Status: Acute (2) Chest pain ICD Code: R07.9 - Chest pain, unspecified Diagnosis: Principal Status: Acute Procedures None Brief History - From Admission patient is a 72 y/o male with history of CAD, CVA,atrial fibrillation? and hypertension who presented to ER with chest pain. he says that the pain started last night. pain was localized to left lower chest associated with some nausea and dizziness and some tingling of the left hand. he denies any fever or cough or sob.he was about to be discharged when he had a near-syncope episode. he says that he had a stress test probably about a year ago which was reportedly negative. CBC/BMP: 07/31/17 1612 Significant Findings Laboratory Tests Test 08/03/17 15:29 Cholesterol Level 113 MG/DL (120-200) HDL Cholesterol 33.0 MG/DL (40.0-60.0) Imaging Last Impressions Head CT 08/04/17 0600 Signed Impressions: Service Date/Time: Friday, August 04, 2017 09:04 - CONCLUSION: 1. Unremarkable scan 2. No evidence of acute infarct, hemorrhage, mass or edema. Robert Avila MD Neck CTA 08/01/17 0000 Signed Impressions: Service Date/Time: Tuesday, August 01, 2017 11:26 - CONCLUSION: 1. No significant carotid flow limiting stenosis. 2. Postsurgical features consistent with prior left carotid endarterectomy. 3. Fusiform aneurysms of the proximal internal carotid arteries bilaterally. This measures up to 11 mm on the right and 13 mm on the left. There is moderate eccentric mural thrombus in the left internal carotid aneurysm. 4. 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 This measures 9 mm on the right and 3 x 10 mm on the left , as above. 5. Patent bilateral vertebral arteries. Toribio Lopez MD Head CTA 08/01/17 0000 Signed Impressions: Service Date/Time: Tuesday, August 01, 2017 11:26 - CONCLUSION: 1. No intracranial aneurysm is identified. If previous imaging can be made available this would be helpful to increase the sensitivity in evaluation. 2. Abnormal appearance of the distal left internal carotid below the skull base with a short segment area of dissection and aneurysmal dilation immediately beneath this. Maximum dimension of the aneurysmal segment of carotid is approximately 7 mm. 3. Wide necked area of aneurysmal dilation involving the distal right internal carotid below the skull base with a maximum dimension of 8.8 mm. Chris Kent MD Chest X-Ray 07/30/17 1058 Signed Impressions: Service Date/Time: Sunday, July 30, 2017 11:36 - CONCLUSION: Stable chest Jamil Kent MD FACR Carotid Artery Ultrasound 07/30/17 0000 Signed Impressions: Service Date/Time: Sunday, July 30, 2017 21:01 - CONCLUSION: 1. Moderate plaque at the left carotid bulb region with the lumen being narrowed by approximately 50%%. 2. Mild plaque without significant stenosis of the right carotid bulb region. Juan Francisco Boyer MD PE at Discharge GENERAL: NAD, A&Ox3 CARDIOVASCULAR: Regular rate and rhythm without gallops, or rubs. Murmur noted RESPIRATORY: Breath sounds equal bilaterally. No accessory muscle use. GASTROINTESTINAL: Abdomen soft, non-tender, nondistended. MUSCULOSKELETAL: No cyanosis, or edema. SKIN: Warm and dry. NEURO: No focal neurological deficits. Hospital Course 72-year-old male admitted secondary to dizziness and chest pain BPV. Repeat head CT without CVA. Patient interrogation unremarkable. He is improving. Meclizine as needed. Outpatient vestibular clinic follow-up. Fall precautions Bilateral internal carotid artery aneurysms Possible left carotid artery dissection History of left-sided endarterectomy Vascular surgery has evaluated this patient Vascular surgery feels there is no correlation to the patient's vertigo No surgery recommended Chest pain No recurrence Negative cardiac workup Continue aspirin, Plavix, lisinopril Negative stress test within the year History of brain aneurysm NOS Previous history of CVA Echocardiogram shows changes of age, no acute or contributory pathology. Carotid ultrasound and CTA showed bilateral carotid aneurysms, evaluated by vascular surgery. No correlation to vertigo. Discontinue prednisone Neurology consult for further evaluation and expertise. Continue physical therapy for balance testing, no musculoskeletal deficit. Atrial fibrillation Continue aspirin and Plavix Hypertension Continue baseline treatment Follow blood pressures Adjust treatments as needed Suboptimal control with increase lisinopril to 20 mg daily. Continue Lopressor Nicotine dependence Smoking cessation recommended NicoDerm Mild anemia and thrombocytopenia. No gross bleeding. Outpatient follow-up DVT prophylaxis SCD's Pt Condition on Discharge: Stable Discharge Disposition: Discharge Home Discharge Time: > 30 minutes Discharge Instructions DIET: Follow Instructions for: Heart Healthy Diet Activities you can perform: Regular-No Restrictions Activities to Avoid: Driving Follow up Referrals: Appointment for Follow Up - 1 Week with Vestibular clinic Neurology - 1 Week PCP Follow-up - 1 Week Physical Therapy - 08/05/17 New Medications: Meclizine (Meclizine) 25 Mg Tab 25 MG PO TID PRN for VERTIGO, #30 TAB [address] (Aspirin DR) 81 Mg Tabdr 81 MG PO DAILY for Prevent Blood Clot, #30 TAB Metoprolol Tartrate (Metoprolol Tartrate) 25 Mg Tab 25 MG PO DAILY for Blood Pressure Management, #30 TAB Nicotine (Eq Nicotine Step 3) 7 Mg/24 Hour Dis 1 PATCH T-DERMAL DAILY for tobacco cessation, #12 PATCH Changed Medications: Lisinopril (Lisinopril) 10 Mg Tab 20 MG PO DAILY for Blood Pressure Management, #60 TAB 0 Refills (Changed from: 10 MG; 30) Continued Medications: Clopidogrel (Plavix) 75 Mg Tab 75 MG PO DAILY for Blood Clot Prevention, #30 TAB 0 Refills Prazosin (Prazosin) 1 Mg Cap 1 MG PO HS for Blood Pressure Management, #60 CAP 0 Refills [facility] MD August 04, 2017 10:37
[2017-08-04 15:50] LABS: HEMOGLOBIN A1C 5.2 % (4.3-6.0)
[2017-08-05] MEDS ORDERED: LISINOPRIL 10 MG TAB PO SCH (09:00)
== END 2017-08-04 14:17 | disposition home or self-care (01) ==
LOC: NEPC 10:34 → NEDA 18:39 → NEPFCDU 21:04
PROVIDERS: ADMIT Internal Medicine; ATTEND Internal Medicine
DX: R07.89 Other chest pain (principal); R06.02 Shortness of breath; R11.0 Nausea; R42 Dizziness and giddiness; R20.2 Paresthesia of skin; I48.91 Unspecified atrial fibrillation; R55 Syncope and collapse; R53.1 Weakness; I25.10 Atherosclerotic heart disease of native coronary artery without angina pectoris; I10 Essential (primary) hypertension; I25.2 Old myocardial infarction; D64.9 Anemia, unspecified; D69.6 Thrombocytopenia, unspecified; R94.31 Abnormal electrocardiogram [ECG] [EKG]; H81.10 Benign paroxysmal vertigo, unspecified ear; F17.200 Nicotine dependence, unspecified, uncomplicated; Z95.0 Presence of cardiac pacemaker; Z79.82 Long term (current) use of aspirin; Z79.02 Long term (current) use of antithrombotics/antiplatelets; Z86.73 Personal history of transient ischemic attack (TIA), and cerebral infarction without residual deficits; Z79.899 Other long term (current) drug therapy
CPT/HCPCS: 70450; 70470; 70496; 70498; 71046; 80048; 80061; 82550; 82607; 83036; 83690; 83735; 84100; 84443; 84484; 85025; 85610; 85652; 85730; 93005; 93306; 93880; 96361; 96374; 97161; 97530; 99285; G0378; G8987; G8988; J2270; J7040; J7512; Q0163; Q9967